=== PATIENT | female | born 1995 ===

== ENCOUNTER 2016-12-04 08:10 | Inpatient (IN) | payer MEDICAID, OTHER ==
[2016-12-04 08:21] VITALS: BMI 27.8
[2016-12-04] MEDS ORDERED: Sodium Chloride 0.9% 1,000 ML IV STA (08:38)
[2016-12-04] MEDS ORDERED: Iohexol 240 (50 ml) ONE (08:44)
--- NOTE | 2016-12-04 09:01 | ED PDOC ---
Arrival/HPI - General Chief Complaint: Abdominal Pain Time Seen by Provider: 12/04/16 08:20 Historian: Patient - History of Present Illness Narrative History of Present Illness (Text): 12/04/16 08:40 A 21 year old female, whose past medical history includes diabetes, s/p cholcystectomy, presents to the ed for abdominal pain, which began 3 days ago. The patient reports her abdominal pain has associated nausea and multiple episodes of vomiting with no blood. The patient states she had a fever of 101.0 last night and took Motrin, she also notes that she hasn't been taking her insulin, due to her decreased appetite. The patient denies any chest pain, shortness of breath, cough, back pain, headaches, dysuria, hematuria, vaginal bleeding, vaginal discharge, or any other complaints at this time. The patient admits to being treated at [facility] 2 days ago and was given antibiotics for UTI. Time/Duration: < week (x 3 days ) Symptom Onset: Gradual Symptom Course: Unchanged Activities at Onset: Light Context: Home Past Medical History - Provider Review Nursing Documentation Reviewed: Yes - Infectious Disease Hx of Infectious Diseases: None - Tetanus Immunization Tetanus Immunization: Unknown - Cardiac Hx Atrial Fibrillation: No Hx Cardiac Arrhythmia: No Hx Congestive Heart Failure: No - Pulmonary Hx Respiratory Disorders: Yes Hx Asthma: Yes - Neurological Hx Neurological Disorder: No - HEENT Hx HEENT Disorder: No - Renal Hx Renal Disorder: Yes (''KIDNEY INFECTION'') - Endocrine/Metabolic Hx Endocrine Disorders: Yes Hx Diabetes Mellitus Type 1: Yes - Hematological/Oncological Hx Blood Disorders: No - Integumentary Hx Dermatological Disorder: No - Musculoskeletal/Rheumatological Hx Musculoskeletal Disorders: No Hx Falls: No - Gastrointestinal Hx Gastrointestinal Disorders: Yes Hx Nausea: Yes Hx Vomiting: Yes - Genitourinary/Gynecological Hx Genitourinary Disorders: Yes Hx Urinary Tract Infection: Yes - Psychiatric Hx Psychophysiologic Disorder: No Hx Substance Use: No - Past Surgical History Past Surgical History: No Previous - Surgical History Hx Cholecystectomy: Yes Other/Comment: ectopic - Anesthesia Hx Anesthesia: Yes Hx Anesthesia Reactions: No Hx Malignant Hyperthermia: No - Suicidal Assessment Feels Threatened In Home Enviroment: No Family/Social History - Physician Review Nursing Documentation Reviewed: Yes Family/Social History: No Known Family HX Smoking Status: Never Smoked Hx Alcohol Use: Yes Frequency of alcohol use: Socially Hx Substance Use: No Hx Substance Use Treatment: No Allergies/Home Meds Allergies/Adverse Reactions: Allergies shellfish derived Allergy (Verified 12/04/16 15:27) SWELLING Home Medications: Home Meds Medication Instructions Recorded Confirmed No Known Home Med 12/04/16 12/04/16 Review of Systems - Physician Review All systems were reviewed & negative as marked: Yes - Review of Systems Constitutional: Fevers (101.0 x last night ) Respiratory: absent: SOB Cardiovascular: absent: Chest Pain Gastrointestinal: Abdominal Pain, Nausea, Vomiting, Appetite Changes (decreased) Genitourinary Female: absent: Dysuria, Hematuria, Vaginal Bleeding, Vaginal Discharge Musculoskeletal: absent: Back Pain Neurological: absent: Headache Physical Exam Vital Signs Temp Pulse Resp BP Pulse Ox 12/04/16 13:18 99.1 F 119 H 17 147/92 H 100 12/04/16 10:40 99.1 F 112 H 17 151/92 H 98 12/04/16 08:28 126 H 16 105/60 100 12/04/16 08:17 99.2 F 135 H 17 150/86 100 Temperature: Afebrile Blood Pressure: Normal Pulse: Tachycardic Respiratory Rate: Normal Appearance: Positive for: Well-Appearing, Non-Toxic, Comfortable Pain Distress: None Mental Status: Positive for: Alert and Oriented X 3 Finger Stick Blood Glucose: 316 - Systems Exam Head: Present: Atraumatic, Normocephalic Pupils: Present: PERRL Extroacular Muscles: Present: EOMI Conjunctiva: Present: Normal Mouth: Present: Moist Mucous Membranes Neck: Present: Normal Range of Motion Respiratory/Chest: Present: Clear to Auscultation, Good Air Exchange. No: Respiratory Distress, Accessory Muscle Use Cardiovascular: Present: Regular Rate and Rhythm, Normal S1, S2. No: Murmurs Abdomen: Present: Tenderness (Diffuse tenderness throughout entire abdomen), Normal Bowel Sounds. No: Distention, Peritoneal Signs Back: Present: Normal Inspection Upper Extremity: Present: Normal Inspection. No: Cyanosis, Edema Lower Extremity: Present: Normal Inspection. No: Edema Neurological: Present: GCS=15, CN II-XII Intact, Speech Normal Skin: Present: Warm, Dry, Normal Color. No: Rashes Psychiatric: Present: Alert, Oriented x 3, Normal Insight, Normal Concentration Medical Decision Making ED Course and Treatment: 12/04/16 09:00 Impression: A 21 year old female with abdominal pain. Differential Diagnosis included but are not limited to: Plan: -- Abdomen & Pelvis CT -- EKG -- Labs -- test -- Pepcid, Zofran, IV Fluids -- Urinalysis -- Reassess and disposition Prior Visits: Notes and results from previous visits were reviewed. The patient was last seen in the emergency department on 12/03/16 for abdominal pain. The patient was discharged home. Progress Notes: 12/04/16 09:12 EKG: Ordered, reviewed, and independently interpreted the EKG. Rate : 127 BPM Rhythm : Sinus rhythm Interpretation : No ST-segment elevations or depressions, no T-wave inversions, normal intervals. Comparison : No previous EKG for comparison. 12/04/16 12:[address] Beltrán and patient will be admitted. - Lab Interpretations Lab Results: 12/04/16 08:45 12/04/16 08:45 Lab Results 12/04/16 09:10: Urine Color Yellow, Urine Appearance Sl cloudy, Urine pH 7.5, Ur Specific [place] 1.020, Urine Protein 100 H, Urine Glucose (UA) 500 H, Urine Ketones 40 H, Urine Blood Large H, Urine Nitrate Negative, Urine Bilirubin Negative, Urine Urobilinogen 4.0 H, Ur Leukocyte Esterase Negative, Urine RBC 5 - 10, Urine WBC 15 - 20, Ur Epithelial Cells 6 - 8, Urine Bacteria Many, Urine HCG, Qual Negative 12/04/16 08:45: pO2 45, VBG pH 7.46 H, VBG pCO2 46.0, VBG HCO3 32.7 H, VBG Total CO2 34.1 H, VBG O2 Sat (Calc) 89.8 H, VBG Base Excess 7.7 H, VBG Potassium 3.2 L, Sodium 137.0, Chloride 96.0 L, Glucose 308 H, Lactate 1.7, FiO2 21.0, Venous Blood Potassium 3.2 L 12/04/16 08:45: Sodium 141, Chloride 94 L, Potassium 3.3 L, Carbon Dioxide 31, Anion Gap 19, BUN 9, Creatinine 0.6, Est GFR ( Amer) > 60, Est GFR (Non- Af Amer) > 60, Random Glucose 297 H, Calcium 9.2, Total Bilirubin 1.3, AST 32, ALT 41, Alkaline Phosphatase 73, Total Protein 7.9, Albumin 4.4, Globulin 3.4, Albumin/Globulin Ratio 1.3, Amylase 63, Lipase 18 L 12/04/16 08:45: WBC 24.6 H D, RBC 4.07, Hgb 13.6, Hct 36.8, MCV 90.4, MCH 33.4, MCHC 37.0, RDW 12.7, Plt Count 219, MPV 9.4, Gran % 93.0 H, Lymph % (Auto) 1.8 L , Chambers % (Auto) 5.2, Eos % (Auto) 0.0 L, Baso % (Auto) 0.0, Gran # 22.90 H, Lymph # 0.5 L, Chambers # 1.3 H, Eos # 0.0, Baso # 0.01 12/04/16 08:26: POC Glucose (mg/dL) 316 H I have reviewed the lab results: Yes - RAD Interpretation Radiology Orders: 12/04/16 08:38 ABD PELVIS PO & IV CONTRAST [CT] Stat 12/04/16 09:31 CHEST PORTABLE [RAD] Stat - Medication Orders Current Medication Orders: Acetaminophen (Tylenol 325mg Tab) 650 mg PO Q6H PRN PRN Reason: Fever >100.4 F Last Admin: 12/04/16 16:30 Dose: 650 mg Albuterol Sulfate (Albuterol 0.083% Inhal Rekha (2.5 Mg/3 Ml) Ud) 2.5 mg IH [id number] PRN PRN Reason: WHEEZING\ Docusate Sodium (Colace) 100 mg PO BID [facility] Last Admin: 12/04/16 17:15 Dose: 100 mg Famotidine (Pepcid) 40 mg PO HS MARIA A Ceftriaxone Sodium (Rocephin 1 Gram Ivpb) 1 gm in 100 mls @ 100 mls/hr IVPB DAILY MARIA A PRN Reason: Protocol Sodium Chloride (Sodium Chloride 0.9%) 1,000 mls @ 100 mls/hr IV .Q10H MARIA A Last Admin: 12/04/16 13:06 Dose: 100 mls/hr Insulin Detemir (Levemir) 12 unit SC HS MARIA A Insulin Human Regular (Humulin R Low) 3 units SC AC MARIA A PRN Reason: Protocol Last Admin: 12/04/16 17:12 Dose: 3 units Morphine Sulfate (Morphine) 2 mg IVP Q4H PRN PRN Reason: Pain, moderate (4-7) Last Admin: 12/04/16 14:02 Dose: 2 mg Ondansetron HCl (Zofran Inj) 4 mg IVP Q4H PRN PRN Reason: Nausea/Vomiting Last Admin: 12/04/16 17:12 Dose: 4 mg Discontinued Medications Famotidine (Pepcid) 20 mg IVP STAT STA Stop: 12/04/16 08:39 Last Admin: 12/04/16 09:00 Dose: 20 mg Sodium Chloride (Sodium Chloride 0.9%) 1,000 mls @ 1,000 mls/hr IV .Q1H STA Stop: 12/04/16 09:37 Last Admin: 12/04/16 09:00 Dose: 1,000 mls/hr Ceftriaxone Sodium (Rocephin 1 Gram Ivpb) 1 gm in 100 mls @ 200 mls/hr IVPB STAT STA PRN Reason: Protocol Stop: 12/04/16 12:38 Last Admin: 12/04/16 12:16 Dose: 200 mls/hr Insulin Human Regular (Humulin R Low) 0 units SC ACHS MARIA A PRN Reason: Protocol Iohexol (Omnipaque 240 (50 Ml)) Confirm Administered Dose 50 ml .ROUTE .STK-MED ONE Stop: 12/04/16 08:45 Iohexol (Omnipaque 350 100 Ml) Confirm Administered Dose 350 mg .ROUTE .STK-MED ONE Stop: 12/04/16 09:43 Ketorolac Tromethamine (Toradol) 30 mg IVP STAT STA Stop: 12/04/16 09:24 Last Admin: 12/04/16 09:52 Dose: 30 mg Morphine Sulfate (Morphine) 2 mg IVP STAT STA Stop: 12/04/16 11:24 Last Admin: 12/04/16 11:28 Dose: 2 mg Ondansetron HCl (Zofran Inj) 4 mg IVP STAT STA Stop: 12/04/16 08:39 Last Admin: 12/04/16 09:00 Dose: 4 mg Pneumococcal Polyvalent Vaccine (Pneumovax 23 Vaccine) 0.5 ml IM .ONCE ONE Stop: 12/04/16 16:56 Potassium Chloride (Potassium Chloride Oral Soln) 40 meq PO STAT STA Stop: 12/04/16 09:23 Last Admin: 12/04/16 09:52 Dose: 40 meq - Scribe Statement The provider has reviewed the documentation as recorded by the Renita Mendes Provider Scribe Attestation: All medical record entries made by the Scribe were at my direction and personally dictated by me. I have reviewed the chart and agree that the record accurately reflects my personal performance of the history, physical exam, medical decision making, and the department course for this patient. I have also personally directed, reviewed, and agree with the discharge instructions and disposition. Disposition/Present on Arrival - Present on Arrival Any Indicators Present on Arrival: No History of DVT/PE: No History of Uncontrolled Diabetes: No Urinary Catheter: No History of Decub. Ulcer: No History Surgical Site Infection Following: None - Disposition Have Diagnosis and Disposition been Completed?: Yes Diagnosis: Pyelonephritis Disposition: HOSPITALIZED Disposition Time: 12:00 Condition: STABLE
[2016-12-04 09:06] LABS: BASO # 0.01 K/mm3 (0.0-2.0); GRAN # 22.9 (1.4-6.5); HEMATOCRIT 36.8 % (36.0-48.0); LYMPH # 0.5 (1.2-3.4); LYMPH % 1.8 % (22.0-35.0); MEAN CELL VOLUME 90.4 fl (80.0-105.0); MEAN CORPUSCULAR HEMOGLOBIN 33.4 pg (25.0-35.0); MEAN PLATELET VOLUME 9.4 fl (7.0-11.0); MONO # 1.3 (0.1-0.6); MONO % 5.2 % (1.0-6.0); RED CELL DISTRIBUTION WIDTH 12.7 % (11.5-14.5); WHITE BLOOD COUNT 24.6 10^3/ul (4.5-11.0)
[2016-12-04 09:07] LABS: VENOUS BLOOD GAS BASE EXCESS 7.7 mmol/L (0.0-2.0); VENOUS BLOOD PH 7.46 (7.32-7.43)
[2016-12-04 09:15] LABS: ALB/GLOB RATIO 1.3 (1.1-1.8); ALKALINE PHOSPHATASE 73 U/L (38-126); ALT/SGPT 41 U/L (7-56); AMYLASE 63 U/L (35-125); AST/SGOT 32 U/L (14-36); BILIRUBIN,TOTAL 1.3 mg/dL (0.2-1.3); BLOOD UREA NITROGEN 9 mg/dL (7-21); CALCIUM 9.2 mg/dL (8.4-10.5); CARBON DIOXIDE 31 mmol/L (21-33); CHLORIDE 94 mmol/L (98-107); GFR AFRICAN-AMERICAN > 60; GLUCOSE,RANDOM 297 mg/dL (70-110); LIPASE 18 U/L (23-300); POTASSIUM 3.3 mmol/L (3.6-5.0); SODIUM 141 mmol/L (132-148); TOTAL PROTEIN 7.9 g/dL (5.8-8.3)
[2016-12-04 09:22] LABS: PH,URINE 7.5 (4.7-8.0); URINE BILIRUBIN NEGATIVE (NEGATIVE); URINE BLOOD LARGE (NEGATIVE); URINE GLUCOSE (UA) 500 mg/dL (NEGATIVE); URINE KETONE 40 mg/dL (NEGATIVE); URINE LEUKOCYTE ESTERASE NEGATIVE Leu/uL (NEGATIVE); URINE PROTEIN 100 mg/dL (<30 mg/dL)
[2016-12-04] MEDS ORDERED: Potassium Chloride 40 mEq/30 ml LIQ UD PO STA (09:22)
[2016-12-04 09:31] LABS: URINE APPEARANCE SL CLOUDY (CLEAR); URINE COLOR YELLOW (YELLOW)
[2016-12-04 09:35] LABS: URINE WBC 15 - 20 /hpf (0-6)
[2016-12-04 09:36] LABS: URINE BACTERIA MANY (NEG)
[2016-12-04] MEDS ORDERED: Iohexol 350 MG/100 ML VIAL ONE (09:42)
--- NOTE | 2016-12-04 10:19 | RAD ---
HISTORY: r/o infiltrate COMPARISON: No prior. FINDINGS: LUNGS: No active pulmonary disease. PLEURA: No significant pleural effusion identified, no pneumothorax apparent. CARDIOVASCULAR: Normal. OSSEOUS STRUCTURES: No significant abnormalities. VISUALIZED UPPER ABDOMEN: Normal. OTHER FINDINGS: None. IMPRESSION: No active disease.
[2016-12-04] MEDS ORDERED: Morphine 2 mg/ml ISec IVP STA (11:23)
--- NOTE | 2016-12-04 11:36 | CT ---
PROCEDURE: CT Abdomen and Pelvis with contrast HISTORY: diffuse lower abdominal pain - greatest in lower COMPARISON: None. TECHNIQUE: Contrast dose: 100 cc of Omni 350 Radiation dose: Total exam DLP = 1061 mGy-cm. This CT exam was performed using one or more of the following dose reduction techniques: Automated exposure control, adjustment of the mA and/or kV according to patient size, and/or use of iterative reconstruction technique. FINDINGS: LOWER THORAX: Unremarkable. LIVER: Unremarkable. No gross lesion or ductal dilatation. GALLBLADDER AND BILE DUCTS: Unremarkable. PANCREAS: Unremarkable. No gross lesion or ductal dilatation. SPLEEN: Unremarkable. ADRENALS: Unremarkable. No mass. KIDNEYS AND URETERS: Poorly defined areas of hypodensity are seen in the left kidney in the upper and lower pole. These do not have the appearance of a discrete mass or cyst and are suspicious for areas of pyelonephritis with parenchymal edema and non enhancement. There is minimal perinephric stranding adjacent to the lower pole. VASCULATURE: Unremarkable. No aortic aneurysm. BOWEL: Unremarkable. No obstruction. No gross mural thickening. APPENDIX: Normal appendix. PERITONEUM: Unremarkable. No free fluid. No free air. LYMPH NODES: Unremarkable. No enlarged lymph nodes. BLADDER: The bladder is decompressed and difficult to evaluate. There may be some mural thickening REPRODUCTIVE: There are 2 separate ovarian cysts on the right side measuring 2.8 and 3.2 cm in diameter. There is no fluid in the cul-de-sac to suggest cyst rupture. BONES: No acute fracture. OTHER FINDINGS: None. IMPRESSION: Poorly defined areas of hypodensity in the left kidney suspicious for pyelonephritis. Clinical correlation is suggested
[2016-12-04] MEDS ORDERED: cefTRIAXone 1 gm 1 GM/100 ML BAG IVPB STA (12:09)
[2016-12-04] MEDS: Sodium Chloride 0.9% 1,000 ML IV SCH (13:06)
--- NOTE | 2016-12-04 13:16 | CP.PCM.HP ---
<ErnestopedroStanley - Last Filed: 12/04/16 15:28> History of Present Illness - History of Present Illness History of Present Illness: This patient is a 21 year old female w/ a PMHx of Asthma, Diabetes Type 1, and ectopic who presented to the ED with complaints of Abdominal Pain, fever, and vomiting x 8 days. Patient originally went to [facility] 2 days ago for similar symptoms. She was diagnosed with UTI and sent home with Naproxen and antibiotics (Cipro). Patient's symptoms worsened over the next two days post being d/c'd from [facility]. She returned to work and stated she "passed out" at work. Patient did not lose conscious nor did she fall on the floor. She was caught by another employee. ROS: (+) Vomitting, dysuria, decreased urinary frequency, CVA tenderness, chills, sweating, constipation (chronic) (-) Chest Pain, Palpitations. 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 Denies tobacco or illicit drug use. Just recently began drinking socially. Hospitalizations: As per HPI Family Hx: Type I diabetes (Mother and Father), Autism (All siblings), ADHD ( All siblings), Breast Cancer (Mother-Living), Epilepsy (Sister) Medications: As per MAR Present on Admission - Present on Admission Any Indicators Present on Admission: No Review of Systems - Review of Systems Review of Systems: As per HPI Past Patient History - Infectious Disease Hx of Infectious Diseases: None - Tetanus Immunizations Tetanus Immunization: Unknown - Past Medical History & Family History Past Medical History?: Yes - Past Social History Smoking Status: Never Smoked - CARDIAC Hx Atrial Fibrillation: No Hx Cardia Arrhythmia: No Hx Congestive Heart Failure: No - PULMONARY Hx Respiratory Disorders: Yes Hx Asthma: Yes - NEUROLOGICAL Hx Neurological Disorder: No - HEENT Hx HEENT Problems: No - RENAL Hx Chronic Kidney Disease: Yes (''KIDNEY INFECTION'') - ENDOCRINE/METABOLIC Hx Endocrine Disorders: Yes Hx Diabetes Mellitus Type 1: Yes - HEMATOLOGICAL/ONCOLOGICAL Hx Blood Disorders: No - INTEGUMENTARY Hx Dermatological Problems: No - MUSCULOSKELETAL/RHEUMATOLOGICAL Hx Musculoskeletal Disorders: No Hx Falls: No - GASTROINTESTINAL Hx Gastrointestinal Disorders: Yes Hx Nausea: Yes Hx Vomiting: Yes - GENITOURINARY/GYNECOLOGICAL Hx Genitourinary Disorders: Yes Hx Urinary Tract Infection: Yes - PSYCHIATRIC Hx Psychophysiologic Disorder: No Hx Substance Use: No - SURGICAL HISTORY Hx Cholecystectomy: Yes Other/Comment: ectopic - ANESTHESIA Hx Anesthesia: Yes Hx Anesthesia Reactions: No Hx Malignant Hyperthermia: No Meds Home Medications: Home Medication List Medication Instructions Recorded Confirmed Type Ciprofloxacin HCl [Cipro] 500 mg PO BID #20 tablet 12/06/16 Rx Ondansetron HCl [Zofran] 4 mg PO Q8 #6 tablet 12/06/16 Rx RX: Insulin Detemir [Levemir] 12 unit SC HS #30 unit 12/06/16 Rx RX: Insulin Human Regular-LOW 3 units SC AC #90 ml 12/06/16 Rx [HumuLIN R LOW] oxyCODONE/Acetaminophen [Percocet 1 ea PO Q6 #10 tab 12/06/16 Rx 5/325 mg Tab] Allergies/Adverse Reactions: Allergies Allergy/AdvReac Type Severity Reaction Status Date / Time shellfish derived Allergy SWELLING Verified 12/04/16 15:27 Physical Exam - Constitutional Appears: Non-toxic, No Acute Distress - Head Exam Head Exam: ATRAUMATIC, NORMOCEPHALIC - Eye Exam Eye Exam: EOMI, Normal appearance, PERRL. absent: Scleral icterus - ENT Exam ENT Exam: Mucous Membranes Moist - Respiratory Exam Respiratory Exam: Clear to Auscultation Bilateral, NORMAL BREATHING PATTERN. absent: Rales, Rhonchi, Wheezes, Respiratory Distress, Stridor - Cardiovascular Exam Cardiovascular Exam: Tachycardia, REGULAR RHYTHM, +S1, +S2. absent: JVD, +S4 - GI/Abdominal Exam GI & Abdominal Exam: Normal Bowel Sounds, Soft, Tenderness - Extremities Exam Extremities exam: Negative for: pedal edema - Back Exam Back exam: CVA tenderness (L), CVA tenderness (R) Additional comments: CVA tenderness Right > Left. - Neurological Exam Neurological exam: Alert, Oriented x3 - Psychiatric Exam Psychiatric exam: Normal Affect, Normal Mood - Skin Skin Exam: Normal Color, Warm Additional comments: sweating. Results - Vital Signs Recent Vital Signs: Last Vital Signs Temp 99.1 F 12/04/16 10:40 Pulse 112 H 12/04/16 10:40 Resp 17 12/04/16 10:40 BP 151/92 H 12/04/16 10:40 Pulse Ox 98 12/04/16 10:40 - Labs Result Diagrams: 12/04/16 08:45 12/04/16 08:45 Assessment & Plan - Assessment and Plan (Free Text) Assessment: 21 year old female who presented with Abdominal pain, fever, and vomitting. Admitted for evolution and treatment of pyelonephritis. Plan: 1.Pyelonephritis -NS 100 mls/hr -Rocephin 1 -Toradol 30 for pain control -Zofran for Nausea -Colace prophylactically for opioid induced constipation 2.Diabetes (Type 1) -Insulin Detemir 12 units before bed -Insulin Human Regular 3 units before each meal. 3. Asthma -Ventolin 2 puffs QID PRN GI proph Pepcid Patient seen and examined with Attending Stanley Tyler PGY-1 - Date & Time Date: 12/04/16 Time: 12:00 <Faustina Cordoba - Last Filed: 12/06/16 14:27> Results - Vital Signs Recent Vital Signs: Last Vital Signs Temp 98.6 F 12/06/16 06:00 Pulse 91 H 12/06/16 06:00 Resp 20 12/06/16 06:00 BP 138/94 H 12/06/16 06:00 Pulse Ox 99 12/06/16 06:00 - Labs Result Diagrams: 12/06/16 09:15 12/06/16 09:15 Labs: Laboratory Results - last 24 hr 12/05/16 12/05/16 12/05/16 12:03 16:23 21:13 WBC RBC Hgb Hct MCV MCH MCHC RDW Plt Count MPV Sodium Potassium Chloride Carbon Dioxide Anion Gap BUN Creatinine Est GFR ( Amer) Est GFR (Non-Af Amer) POC Glucose (mg/dL) 156 H 220 H 172 H Random Glucose Calcium 12/06/16 12/06/16 12/06/16 03:29 07:36 09:15 WBC 8.0 D RBC 3.72 Hgb 12.1 Hct 34.1 L MCV 91.7 MCH 32.5 MCHC 35.5 RDW 12.7 Plt Count 231 MPV 9.3 Sodium Potassium Chloride Carbon Dioxide Anion Gap BUN Creatinine Est GFR ( Amer) Est GFR (Non-Af Amer) POC Glucose (mg/dL) 113 H 178 H Random Glucose Calcium 12/06/16 12/06/16 09:15 11:52 WBC RBC Hgb Hct MCV MCH MCHC RDW Plt Count MPV Sodium 138 Potassium 3.8 Chloride 101 Carbon Dioxide 27 Anion Gap 14 BUN 8 Creatinine 0.6 Est GFR ( Amer) > 60 Est GFR (Non-Af Amer) > 60 POC Glucose (mg/dL) 157 H Random Glucose 144 H Calcium 8.9 Attending/Attestation - Attestation I have personally seen and examined this patient.: Yes I have fully participated in the care of the patient.: Yes I have reviewed all pertinent clinical information: Yes Notes (Text): 12/06/16 14:25 attending note; Patient seen and examined with resident in ER. Patient is a 21-year-old female With a past medical history of diabetes, asthma is admitted with fevers, chills and flank pain. CT abdomen is consistent with acute pyelonephritis. started on IV Rocephin. Patient had recent urine culture showed Escherichia coli. ID evaluation requested. Monitor closely. Diabetes; continue Levemir and insulin sliding scale. upon discharge the patient will follow-up with PMD Dr. Pierce. 12/06/16 14:27
[2016-12-04] MEDS: Morphine 2 mg/ml ISec IVP PRN ×3 (14:02→22:33)
[2016-12-04] MEDS ORDERED: Albuterol HFA 90 mcg/actuation (8 g) IH PRN (15:27)
[2016-12-04] MEDS ORDERED: Albuterol 0.083% Inhal Sol (2.5 mg/3 mL) UD IH PRN (15:30)
--- NOTE | 2016-12-04 15:41 | CARD ---
APPROVED REPORT EKG Measurement Heart [id number] <Conclusion> Sinus tachycardia Possible Left atrial enlargement Borderline ECG
[2016-12-04] MEDS ORDERED: Insulin Reg-LOW-Coverage SC SCH (16:30)
[2016-12-04] MEDS ORDERED: Pneumococcal 23-Valent Vaccine IM ONE (16:55)
[2016-12-04] MEDS: Insulin Reg-LOW-Coverage SC SCH (17:12)
[2016-12-04] MEDS: Insulin Detemir 100 units/ml Vial (Levemir) SC SCH (21:23)
[2016-12-05] MEDS: Morphine 2 mg/ml ISec IVP PRN ×5 (02:41→21:01)
[2016-12-05] MEDS: Insulin Reg-LOW-Coverage SC SCH ×3 (09:12→16:35)
[2016-12-05] MEDS: Sodium Chloride 0.9% 1,000 ML IV SCH ×2 (09:13→23:02)
[2016-12-05] MEDS: cefTRIAXone 1 gm 1 GM/100 ML BAG IVPB SCH (09:14)
[2016-12-05 10:39] LABS: BASO # 0.01 K/mm3 (0.0-2.0); BASO % 0.1 % (0.0-3.0); EOS % 0.1 % (1.5-5.0); GRAN # 12.86 (1.4-6.5); GRAN % 86.2 % (50.0-68.0); LYMPH % 6.8 % (22.0-35.0); MEAN CELL VOLUME 91.7 fl (80.0-105.0); MEAN CORPUSCULAR HEMOGLOBIN 32.8 pg (25.0-35.0); MEAN CORPUSCULAR HGB CONC 35.8 g/dl (31.0-37.0); MEAN PLATELET VOLUME 9.4 fl (7.0-11.0); MONO % 6.8 % (1.0-6.0); RED CELL DISTRIBUTION WIDTH 12.6 % (11.5-14.5); WHITE BLOOD COUNT 14.9 10^3/ul (4.5-11.0)
[2016-12-05 10:44] LABS: BLOOD UREA NITROGEN 8 mg/dL (7-21); CALCIUM 8.6 mg/dL (8.4-10.5); CARBON DIOXIDE 25 mmol/L (21-33); CHLORIDE 100 mmol/L (98-107); GFR AFRICAN-AMERICAN > 60; GLUCOSE,RANDOM 185 mg/dL (70-110); POTASSIUM 3.5 mmol/L (3.6-5.0); SODIUM 136 mmol/L (132-148)
[2016-12-05] MEDS ORDERED: Lidocaine 2% Viscous 100 ml PO PRN (10:49)
[2016-12-05] MEDS ORDERED: Potassium Chloride 20 mEq ER Tab PO ONE (10:54)
--- NOTE | 2016-12-05 11:20 | CP.PCM.PN ---
<Stanley Tyler - Last Filed: 12/05/16 11:34> Subjective - Date & Time of Evaluation Date of Evaluation: 12/05/16 Time of Evaluation: 11:17 - Subjective Subjective: Patient has been seen and examined. Patient complains of subjective fever, chills, sore throat and diffuse abdominal pain. Denies SOB, Chest pain, Vomiting, Diarrhea, or constipation. Objective - Vital Signs/Intake and Output Vital Signs (last 24 hours): Temp Pulse Resp BP Pulse Ox 100.0 F H 124 H 21 156/99 H 98 12/05/16 06:00 12/05/16 06:00 12/05/16 06:00 12/05/16 06:00 12/05/16 06:00 Intake and Output: 12/05/16 12/05/16 06:59 18:59 Intake Total 540 480 Balance 540 480 - Medications Medications: Current Medications Acetaminophen (Tylenol 325mg Tab) 650 mg PO Q6H PRN PRN Reason: Fever >100.4 F Last Admin: 12/04/16 16:30 Dose: 650 mg Albuterol Sulfate (Albuterol 0.083% Inhal Rekha (2.5 Mg/3 Ml) Ud) 2.5 mg IH [id number] PRN PRN Reason: WHEEZING\ Docusate Sodium (Colace) 100 mg PO BID [facility] Last Admin: 12/05/16 09:12 Dose: 100 mg Famotidine (Pepcid) 40 mg PO HS [facility] Last Admin: 12/04/16 21:24 Dose: 40 mg Ceftriaxone Sodium (Rocephin 1 Gram Ivpb) 1 gm in 100 mls @ 100 mls/hr IVPB DAILY [facility] PRN Reason: Protocol Last Admin: 12/05/16 09:14 Dose: 100 mls/hr Sodium Chloride (Sodium Chloride 0.9%) 1,000 mls @ 100 mls/hr IV .Q10H [facility] Last Admin: 12/05/16 09:13 Dose: 100 mls/hr Ibuprofen (Motrin Tab) 400 mg PO Q6H PRN PRN Reason: Fever >100.4 F Insulin Detemir (Levemir) 12 unit SC [facility] Last Admin: 12/04/16 21:23 Dose: 12 unit Insulin Human Regular (Humulin R Low) 3 units SC [facility] PRN Reason: Protocol Last Admin: 12/05/16 09:12 Dose: 3 units Lidocaine HCl (Lidocaine 2% Viscous) 15 ml PO Q3H PRN PRN Reason: Sore Throat Morphine Sulfate (Morphine) 2 mg IVP Q4H PRN PRN Reason: Pain, moderate (4-7) Last Admin: 12/05/16 08:04 Dose: 2 mg Ondansetron HCl (Zofran Inj) 4 mg IVP Q4H PRN PRN Reason: Nausea/Vomiting Last Admin: 12/05/16 09:56 Dose: 4 mg - Labs Labs: 12/05/16 10:30 12/05/16 10:30 - Constitutional Appears: No Acute Distress - Head Exam Head Exam: ATRAUMATIC, NORMOCEPHALIC - Eye Exam Eye Exam: Normal appearance - ENT Exam ENT Exam: Mucous Membranes Moist, Normal Oropharynx - Respiratory Exam Respiratory Exam: Clear to Ausculation Bilateral. absent: Rales, Rhonchi, Wheezes - Cardiovascular Exam Cardiovascular Exam: RRR, +S1, +S2 - GI/Abdominal Exam GI & Abdominal Exam: Soft, Tenderness, Normal Bowel Sounds - Back Exam Back Exam: CVA tenderness (L), CVA tenderness (R) - Neurological Exam Neurological Exam: Alert, Awake, Oriented x3 - Psychiatric Exam Psychiatric exam: Depressed - Skin Skin Exam: Intact, Normal Color, Warm. absent: Dry Assessment and Plan - Assessment and Plan (Free Text) Assessment: Assessment: 21 year old female who presented with abdominal pain, fever, and vomiting. Admitted for evaluation and treatment of pyelonephritis. Plan: 1.Pyelonephritis -NS 100 mls/hr -Rocephin 1 -Toradol 30 for pain control -Zofran for Nausea -Colace prophylactically for opioid induced constipation - Urine cultures from [facility] [place] showed E.coli 2.Diabetes (Type 1) -Insulin Detemir 12 units before bed -Insulin Human Regular 3 units before each meal. 3. Asthma -Ventolin 2 puffs QID PRN GI proph Pepcid Dispo: Patient Hypertensive and tachycardic this morning. Likely due to pain. We will monitor BP. Per ID, we will discharge if patient is afebrile > 24 hours. Patient seen and examined with Attending Stanley Tyler PGY-1 <Jailene ANSARI,Domenico - Last Filed: 12/05/16 15:53> Objective - Vital Signs/Intake and Output Vital Signs (last 24 hours): Temp Pulse Resp BP Pulse Ox 100.0 F H 124 H 21 156/99 H 98 12/05/16 06:00 12/05/16 06:00 12/05/16 06:00 12/05/16 06:00 12/05/16 06:00 Intake and Output: 12/05/16 12/05/16 06:59 18:59 Intake Total 540 480 Balance 540 480 - Medications Medications: Current Medications Acetaminophen (Tylenol 325mg Tab) 650 mg PO Q6H PRN PRN Reason: Fever >100.4 F Last Admin: 12/04/16 16:30 Dose: 650 mg Albuterol Sulfate (Albuterol 0.083% Inhal Rekha (2.5 Mg/3 Ml) Ud) 2.5 mg IH [id number] PRN PRN Reason: WHEEZING\ Docusate Sodium (Colace) 100 mg PO BID [facility] Last Admin: 12/05/16 09:12 Dose: 100 mg Famotidine (Pepcid) 40 mg PO HS [facility] Last Admin: 12/04/16 21:24 Dose: 40 mg Ceftriaxone Sodium (Rocephin 1 Gram Ivpb) 1 gm in 100 mls @ 100 mls/hr IVPB DAILY [facility] PRN Reason: Protocol Last Admin: 12/05/16 09:14 Dose: 100 mls/hr Sodium Chloride (Sodium Chloride 0.9%) 1,000 mls @ 100 mls/hr IV .Q10H [facility] Last Admin: 12/05/16 09:13 Dose: 100 mls/hr Ibuprofen (Motrin Tab) 400 mg PO Q6H PRN PRN Reason: Fever >100.4 F Last Admin: 12/05/16 14:22 Dose: 400 mg Insulin Detemir (Levemir) 12 unit SC HS [facility] Last Admin: 12/04/16 21:23 Dose: 12 unit Insulin Human Regular (Humulin R Low) 3 units SC AC [facility] PRN Reason: Protocol Last Admin: 12/05/16 12:27 Dose: 3 units Lidocaine HCl (Lidocaine 2% Viscous) 15 ml PO Q3H PRN PRN Reason: Sore Throat Morphine Sulfate (Morphine) 2 mg IVP Q4H PRN PRN Reason: Pain, moderate (4-7) Last Admin: 12/05/16 12:30 Dose: 2 mg Ondansetron HCl (Zofran Inj) 4 mg IVP Q4H PRN PRN Reason: Nausea/Vomiting Last Admin: 12/05/16 14:22 Dose: 4 mg - Labs Labs: 12/05/16 10:30 12/05/16 10:30 Attending/Attestation - Attestation I have personally seen and examined this patient.: Yes I have fully participated in the care of the patient.: Yes I have reviewed all pertinent clinical information, including history, physical exam and plan: Yes Notes (Text): 12/05/16 15:49 Patient was seen and examined with medical records custodian. Agreed with resident assessment and plan. 25 Yrs old female with Sepsis due to left side Pylonephritis.Urine cultures are growing E coli.Patient fever is improving.WBC count is coming down. Pain is better.Blood cultures are negative for any growth. If cultures remain negative and she keeps improving, can be discharged in 24 hour. Management plan was discussed in detail with patient Education was provided.
[2016-12-05] MEDS: Insulin Detemir 100 units/ml Vial (Levemir) SC SCH (22:51)
--- NOTE | 2016-12-06 00:34 | CON ---
DATE: 12/05/2016 SUBJECTIVE: The patient is in bed, was seen earlier in room 369 bed 1. CHIEF COMPLAINT: Abdominal pain times several days. HISTORY OF PRESENT ILLNESS: This is a 21-year-old female with history of asthma, diabetes, and pyelonephritis, history of ectopic in September, and history of cholecystectomy in the past who is ALLERGIC TO SHELLFISH, who is admitted with diagnosis of pyelonephritis. Infectious disease consult on patient requested. The patient states that she has had fevers and bilateral flank pains and she had chills. No nausea or vomiting at this point. She did have nausea earlier. No dysuria or frequency now. She has no chest pain, shortness of breath, or cough. PAST MEDICAL HISTORY: Significant for diabetes mellitus, asthma, pyelonephritis, and ectopic in September. PAST SURGICAL HISTORY: Cholecystectomy and surgery for the ectopic in September. ALLERGIES: PATIENT IS ALLERGIC TO SHELLFISH. HOME MEDICATIONS: No medications at home. SOCIAL HISTORY: The patient is sexually active, same one partner. She states they always use condom. She has never had any sexually transmitted diseases in the past. PHYSICAL EXAMINATION VITAL SIGNS: Temperature is 99, T-max is 101, blood pressure is 150/90, respiratory rate of 21, and heart rate of 121. HEENT: Unremarkable. NECK: Supple. LUNGS: Decreased breath sounds. HEART: Normal S1 and S2. ABDOMEN: Soft and nontender. No rebound, no guarding, no masses. There is mild CVA tenderness. LABORATORY DATA: Reveals a white count of 24,000, hemoglobin of 13, and platelets 219,000. Chemistry reveals a BUN of 8, creatinine of 0.6, and the patient's beta hCG is less than 2.39, which is consistent with non- females. Urinalysis is noted, 15 WBCs and many bacteria. Microbiology reveals a gram negative amrita in the urine and the patient had a gram negative amrita, which was E. coli on , is pansensitive. ASSESSMENT AND PLAN: A 21-year-old female with diabetes and asthma, pyelonephritis, history of ectopic presenting with leukocytosis, fever, vomiting and sepsis with left pyelonephritis, although bilateral with E. coli this is pansensitive. Current recommendations, continue intravenous antibiotics until the patient is afebrile for 24 hours, then may switch to p.o. Cipro to complete therapy. Currently, we will treat the patient with ceftriaxone. We will order an HIV test, GC and chlamydia workup and check on the blood cultures and identification and sensitivity of the gram negative amrita. Case was discussed with PMD. We will follow with you. Luis Zhu MD
[2016-12-06] MEDS: Morphine 2 mg/ml ISec IVP PRN ×5 (01:00→19:08)
[2016-12-06] MEDS: Insulin Reg-LOW-Coverage SC SCH ×3 (07:32→16:35)
[2016-12-06 09:03] VITALS: O2SAT 99
[2016-12-06 09:36] LABS: HEMATOCRIT 34.1 % (36.0-48.0); MEAN CELL VOLUME 91.7 fl (80.0-105.0); MEAN CORPUSCULAR HEMOGLOBIN 32.5 pg (25.0-35.0); MEAN CORPUSCULAR HGB CONC 35.5 g/dl (31.0-37.0); MEAN PLATELET VOLUME 9.3 fl (7.0-11.0); RED CELL DISTRIBUTION WIDTH 12.7 % (11.5-14.5)
[2016-12-06 09:45] LABS: BLOOD UREA NITROGEN 8 mg/dL (7-21); CALCIUM 8.9 mg/dL (8.4-10.5); CARBON DIOXIDE 27 mmol/L (21-33); CHLORIDE 101 mmol/L (95-110); GFR AFRICAN-AMERICAN > 60; GLUCOSE,RANDOM 144 mg/dL (70-110); POTASSIUM 3.8 mmol/L (3.6-5.0); SODIUM 138 mmol/L (132-148)
[2016-12-06] MEDS: cefTRIAXone 1 gm 1 GM/100 ML BAG IVPB SCH (10:17)
--- NOTE | 2016-12-06 11:58 | CP.PCM.PN ---
<ErnestopedroAzkenyatta - Last Filed: 12/06/16 11:54> Subjective - Date & Time of Evaluation Date of Evaluation: 12/06/16 Time of Evaluation: 11:54 - Subjective Subjective: Patient has been seen and examined at bedside. Patient state she had a fever overnight. Currently reports no fever. Patient nausea has improved but has not subsided. Reports improvement of abdominal pain and CVA tenderness. Denies any CP, SOB, vomiting, dysuria or hematuria. Objective - Vital Signs/Intake and Output Vital Signs (last 24 hours): Temp Pulse Resp BP Pulse Ox 98.6 F 91 H 20 138/94 H 99 12/06/16 06:00 12/06/16 06:00 12/06/16 06:00 12/06/16 06:00 12/06/16 06:00 Intake and Output: 12/06/16 12/06/16 06:59 18:59 Intake Total 600 Output Total 0 Balance 600 - Medications Medications: Current Medications Acetaminophen (Tylenol 325mg Tab) 650 mg PO Q6H PRN PRN Reason: Fever >100.4 F Last Admin: 12/04/16 16:30 Dose: 650 mg Albuterol Sulfate (Albuterol 0.083% Inhal Rekha (2.5 Mg/3 Ml) Ud) 2.5 mg IH [id number] PRN PRN Reason: WHEEZING\ Docusate Sodium (Colace) 100 mg PO BID [facility] Last Admin: 12/06/16 10:18 Dose: 100 mg Famotidine (Pepcid) 40 mg PO [facility] Last Admin: 12/05/16 21:00 Dose: 40 mg Ceftriaxone Sodium (Rocephin 1 Gram Ivpb) 1 gm in 100 mls @ 100 mls/hr IVPB DAILY [facility] PRN Reason: Protocol Last Admin: 12/06/16 10:17 Dose: 100 mls/hr Sodium Chloride (Sodium Chloride 0.9%) 1,000 mls @ 100 mls/hr IV .Q10H [facility] Last Admin: 12/05/16 23:02 Dose: 100 mls/hr Ibuprofen (Motrin Tab) 400 mg PO Q6H PRN PRN Reason: Fever >100.4 F Last Admin: 12/05/16 14:22 Dose: 400 mg Insulin Detemir (Levemir) 12 unit SC [facility] Last Admin: 12/05/16 22:51 Dose: 12 unit Insulin Human Regular (Humulin R Low) 3 units SC [facility] PRN Reason: Protocol Last Admin: 12/05/16 16:35 Dose: 3 units Lidocaine HCl (Lidocaine 2% Viscous) 15 ml PO Q3H PRN PRN Reason: Sore Throat Morphine Sulfate (Morphine) 2 mg IVP Q4H PRN PRN Reason: Pain, moderate (4-7) Last Admin: 12/06/16 10:17 Dose: 2 mg Ondansetron HCl (Zofran Inj) 4 mg IVP Q4H PRN PRN Reason: Nausea/Vomiting Last Admin: 12/06/16 10:17 Dose: 4 mg - Labs Labs: 12/06/16 09:15 12/06/16 09:15 - Constitutional Appears: No Acute Distress - Head Exam Head Exam: ATRAUMATIC, NORMAL INSPECTION, NORMOCEPHALIC - Eye Exam Eye Exam: EOMI, Normal appearance - ENT Exam ENT Exam: Mucous Membranes Moist - Respiratory Exam Respiratory Exam: Clear to Ausculation Bilateral. absent: Rales, Rhonchi, Wheezes, Respiratory Distress, Stridor - Cardiovascular Exam Cardiovascular Exam: RRR, +S1, +S2 - GI/Abdominal Exam GI & Abdominal Exam: Soft, Normal Bowel Sounds. absent: Tenderness, Organomegaly - Back Exam Back Exam: CVA tenderness (L), CVA tenderness (R) Additional comments: CVA tenderness improved - Neurological Exam Neurological Exam: Alert, Awake, Oriented x3 - Psychiatric Exam Psychiatric exam: Normal Affect, Normal Mood - Skin Skin Exam: Dry, Intact, Normal Color, Warm Assessment and Plan - Assessment and Plan (Free Text) Assessment: 21 year old female with PMHx of Type 1 diabetes and Asthma who presented with abdominal pain, fever, and vomiting. Admitted for evaluation and treatment of pyelonephritis. Plan: 1. Pyelonephritis -NS 100 mls/hr -Rocephin 1. F/U with ID for outpatient antibiotic therapy. -Motrin 400 PO q6, and Morphine 2 IVP Q4 for pain control. -Zofran for Nausea -Colace prophylactically for opioid induced constipation - Urine cultures from [facility] showed E.coli 2. Diabetes (Type 1) -Insulin Detemir 12 units before bed -Insulin Human Regular 3 units before each meal. 3. Asthma -Ventolin 2 puffs QID PRN GI proph: Pepcid Dispo: Patient Hypertensive and tachycardia this morning. Likely due to pain. We will monitor BP. Per ID, we will discharge if patient is afebrile > 24 hours. Will likely be discharged this evening or tomorrow. STD labs (HIV, syphilis, Chlamydia, Gonorrhea) currently pending. Patient seen and examined with Attending Stanley Tyler PGY-1 <Faustina Cordoba - Last Filed: 12/07/16 12:10> Objective - Vital Signs/Intake and Output Vital Signs (last 24 hours): Temp Pulse Resp BP Pulse Ox 99.3 F 76 18 152/104 H 99 12/07/16 08:45 12/07/16 08:45 12/07/16 08:45 12/07/16 08:45 12/07/16 08:45 Intake and Output: 12/07/16 12/07/16 06:59 18:59 Intake Total 720 Output Total 1 Balance 719 - Medications Medications: Current Medications Acetaminophen (Tylenol 325mg Tab) 650 mg PO Q6H PRN PRN Reason: Fever >100.4 F Last Admin: 12/04/16 16:30 Dose: 650 mg Albuterol Sulfate (Albuterol 0.083% Inhal Rekha (2.5 Mg/3 Ml) Ud) 2.5 mg IH [id number] PRN PRN Reason: WHEEZING\ Docusate Sodium (Colace) 100 mg PO BID [facility] Last Admin: 12/07/16 10:00 Dose: Not Given Famotidine (Pepcid) 40 mg PO HS [facility] Last Admin: 12/06/16 22:02 Dose: 40 mg Ceftriaxone Sodium (Rocephin 1 Gram Ivpb) 1 gm in 100 mls @ 100 mls/hr IVPB DAILY [facility] PRN Reason: Protocol Last Admin: 12/07/16 07:30 Dose: Not Given Ibuprofen (Motrin Tab) 400 mg PO Q6H PRN PRN Reason: Fever >100.4 F Last Admin: 12/05/16 14:22 Dose: 400 mg Insulin Detemir (Levemir) 12 unit SC HS [facility] Last Admin: 12/06/16 22:00 Dose: 12 unit Insulin Human Regular (Humulin R Low) 3 units SC AC [facility] PRN Reason: Protocol Last Admin: 12/07/16 11:57 Dose: Not Given Lidocaine HCl (Lidocaine 2% Viscous) 15 ml PO Q3H PRN PRN Reason: Sore Throat Ondansetron HCl (Zofran Inj) 4 mg IVP Q4H PRN PRN Reason: Nausea/Vomiting Last Admin: 12/07/16 00:15 Dose: 4 mg Oxycodone/Acetaminophen (Percocet 5/325 Mg Tab) 1 tab PO Q6H PRN PRN Reason: Pain, moderate (4-7) Stop: 12/09/16 15:59 Attending/Attestation - Attestation I have personally seen and examined this patient.: Yes I have fully participated in the care of the patient.: Yes I have reviewed all pertinent clinical information, including history, physical exam and plan: Yes Notes (Text): 12/07/16 12:09 attending note; Patient seen and examined with resident in ER. Patient is a 21-year-old female With a past medical history of diabetes, asthma is admitted with fevers, chills and flank pain. CT abdomen is consistent with acute pyelonephritis. on IV Rocephin. Patient had recent urine culture showed Escherichia coli. leukocytosis is improving. ID evaluation appreciated. Monitor closely. Diabetes; continue Levemir and insulin sliding scale. possible discharge home tomorrow if afebrile. upon discharge the patient will follow-up with PMD Dr. Pierce.
--- NOTE | 2016-12-06 13:52 | PN ---
DATE: 12/06/2016 SUBJECTIVE: The patient is in bed, in no acute distress. PHYSICAL EXAMINATION: VITAL SIGNS: Temperature is 100, blood pressure is 130/90, respiratory rate of 21, and heart rate of 124. HEENT: Unremarkable. NECK: Supple. LUNGS: Have decreased breath sounds. HEART: Normal S1 and S2. ABDOMEN: Soft. LABORATORY DATA: Examination reveals white count is down to 8000 this morning and hemoglobin of 12 and chemistries are noted. Urinalysis is noted and microbiology reveals patient has E. coli in the urine that is pansensitive and the patient is afebrile this morning. ASSESSMENT AND PLAN: This is a 21-year-old female with history of diabetes, asthma, pyelonephritis, history of ectopic , now presenting with leukocytosis, fever, vomiting, and sepsis and left-sided pyelonephritis with pansensitive Escherichia coli. Once the patient is afebrile for 24 hours, may switch to p.o. Cipro and complete 10 days of therapy. Case discussed with Dr. Cordoba, the patient's primary doctor today. Luis Zhu MD
[2016-12-06] MEDS ORDERED: Oxycodone/Acetaminophen 5/325 mg Tab PO PRN (15:58)
[2016-12-06] MEDS: Insulin Detemir 100 units/ml Vial (Levemir) SC SCH (22:00)
[2016-12-07] MEDS: Morphine 2 mg/ml ISec IVP PRN (01:08)
[2016-12-07] MEDS: Insulin Reg-LOW-Coverage SC SCH ×2 (07:30→11:57)
[2016-12-07] MEDS: cefTRIAXone 1 gm 1 GM/100 ML BAG IVPB SCH (07:30)
[2016-12-07 08:46] VITALS: BP 152/104; PULSE 76; RESP 18; TEMP 99.3
--- NOTE | 2016-12-07 10:59 | CP.PCM.DIS ---
<OmarShanan - Last Filed: 12/07/16 15:04> Provider - Provider Date of Admission: 12/06/16 16:17 Attending physician: Faustina Cordoba MD Primary care physician: Momo Pierce MD Time Spent in preparation of Discharge (in minutes): 40 Hospital Course - Lab Results Lab Results: Most Recent Lab Values WBC 8.0 10^3/ul (4.5-11.0) D 12/06/16 09:15 RBC 3.72 10^6/uL (3.5-6.1) 12/06/16 09:15 Hgb 12.1 g/dL (12.0-16.0) 12/06/16 09:15 Hct 34.1 % (36.0-48.0) L 12/06/16 09:15 MCV 91.7 fl (80.0-105.0) 12/06/16 09:15 MCH 32.5 pg (25.0-35.0) 12/06/16 09:15 MCHC 35.5 g/dl (31.0-37.0) 12/06/16 09:15 RDW 12.7 % (11.5-14.5) 12/06/16 09:15 Plt Count 231 10^3/uL (120.0-450.0) 12/06/16 09:15 MPV 9.3 fl (7.0-11.0) 12/06/16 09:15 Gran % 86.2 % (50.0-68.0) H 12/05/16 10:30 Lymph % (Auto) 6.8 % (22.0-35.0) L 12/05/16 10:30 [place] % (Auto) 6.8 % (1.0-6.0) H 12/05/16 10:30 Eos % (Auto) 0.1 % (1.5-5.0) L 12/05/16 10:30 Baso % (Auto) 0.1 % (0.0-3.0) 12/05/16 10:30 Gran # 12.86 (1.4-6.5) H 12/05/16 10:30 Lymph # 1.0 (1.2-3.4) L 12/05/16 10:30 [place] # 1.0 (0.1-0.6) H 12/05/16 10:30 Eos # 0.0 (0.0-0.7) 12/05/16 10:30 Baso # 0.01 K/mm3 (0.0-2.0) 12/05/16 10:30 pO2 45 mm/Hg (30-55) 12/04/16 08:45 VBG pH 7.46 (7.32-7.43) H 12/04/16 08:45 VBG pCO2 46.0 (40-60) 12/04/16 08:45 VBG HCO3 32.7 mmol/l (21-28) H 12/04/16 08:45 VBG Total CO2 34.1 mmol.L (22-28) H 12/04/16 08:45 VBG O2 Sat (Calc) 89.8 % (40-65) H 12/04/16 08:45 VBG Base Excess 7.7 mmol/L (0.0-2.0) H 12/04/16 08:45 VBG Potassium 3.2 mmol/L (3.6-5.2) L 12/04/16 08:45 Sodium 137.0 mmol/L (132-148) 12/04/16 08:45 Chloride 96.0 mmol/L (98-107) L 12/04/16 08:45 Glucose 308 mg/dl (65-105) H 12/04/16 08:45 Lactate 1.7 mmol/L (0.7-2.1) 12/04/16 08:45 FiO2 21.0 % 12/04/16 08:45 Sodium 138 mmol/L (132-148) 12/06/16 09:15 Potassium 3.8 mmol/L (3.6-5.0) 12/06/16 09:15 Chloride 101 mmol/L (95-110) 12/06/16 09:15 Carbon Dioxide 27 mmol/L (21-33) 12/06/16 09:15 Anion Gap 14 (10-20) 12/06/16 09:15 BUN 8 mg/dL (7-21) 12/06/16 09:15 Creatinine 0.6 mg/dL (0.5-1.4) 12/06/16 09:15 Est GFR ( Amer) > 60 12/06/16 09:15 Est GFR (Non-Af Amer) > 60 12/06/16 09:15 POC Glucose (mg/dL) 184 mg/dL (65-110) H 12/06/16 21:39 Random Glucose 144 mg/dL (70-110) H 12/06/16 09:15 Calcium 8.9 mg/dL (8.4-10.5) 12/06/16 09:15 Total Bilirubin 1.3 mg/dL (0.2-1.3) 12/04/16 08:45 AST 32 U/L (14-36) 12/04/16 08:45 ALT 41 U/L (7-56) 12/04/16 08:45 Alkaline Phosphatase 73 U/L (38-126) 12/04/16 08:45 Total Protein 7.9 g/dL (5.8-8.3) 12/04/16 08:45 Albumin 4.4 g/dL (3.0-4.8) 12/04/16 08:45 Globulin 3.4 gm/dL 12/04/16 08:45 Albumin/Globulin Ratio 1.3 (1.1-1.8) 12/04/16 08:45 Amylase 63 U/L (35-125) 12/04/16 08:45 Lipase 18 U/L (23-300) L 12/04/16 08:45 Beta HCG, Quant < 2.39 mIU/mL (0-6.15) 12/05/16 10:30 Venous Blood Potassium 3.2 mmol/L (3.6-5.2) L 12/04/16 08:45 Urine Color Yellow (YELLOW) 12/04/16 09:10 Urine Appearance Sl cloudy (CLEAR) 12/04/16 09:10 Urine pH 7.5 (4.7-8.0) 12/04/16 09:10 Ur Specific [place] 1.020 (1.005-1.035) 12/04/16 09:10 Urine Protein 100 mg/dL (<30 mg/dL) H 12/04/16 09:10 Urine Glucose (UA) 500 mg/dL (NEGATIVE) H 12/04/16 09:10 Urine Ketones 40 mg/dL (NEGATIVE) H 12/04/16 09:10 Urine Blood Large (NEGATIVE) H 12/04/16 09:10 Urine Nitrate Negative (NEGATIVE) 12/04/16 09:10 Urine Bilirubin Negative (NEGATIVE) 12/04/16 09:10 Urine Urobilinogen 4.0 E.U./dL (<1 E.U./dL) H 12/04/16 09:10 Ur Leukocyte Esterase Negative Genny/uL (NEGATIVE) 12/04/16 09:10 Urine RBC 5 - 10 /hpf (0-2) 12/04/16 09:10 Urine WBC 15 - 20 /hpf (0-6) 12/04/16 09:10 Ur Epithelial Cells 6 - 8 /hpf (0-5) 12/04/16 09:10 Urine Bacteria Many (NEG) 12/04/16 09:10 Urine HCG, Qual Negative (NEGATIVE) 12/04/16 09:10 - Hospital Course Hospital Course: This is a 21 yr. old female with a past medical history of Type 1 Diabetes who came to [facility] complaining of abdominal pain, fever, and vomiting for eight days. She reports recently being diagnosed with a recent UTI and given Naproxen and Ciprofloxacin. Her symptoms began to worsen and she "passed out" at work. Patient denies losing consciousness and hitting her head on the floor. She reports being caught by another employee. A CT abdomen/ pelvis shoed poorly defined areas of hypodensity in the left kidney suspicious for pyelonephritis. On 12/05/16 patient reported sore throat and she denies any improvement in the pain level. She also reported subjective fevers. On 12/06 she was determined to be stable and to be sent home tonight or in the morning the next day with 10 days of Ciprofloxacin, Zofran, and Percocet. On 12/07 patient agreed to go home and was discharged. 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 Denies tobacco or illicit drug use. Fam hx: Type 1 Diabetes (Mom and Dad), Autisim and ADHD(all siblings ) Epilepsy (sister), Mom-Living (Breast Cancer) Medications: per MAR - Date & Time of H&P Date of H&P: 12/04/16 Time of H&P: 13:16 Discharge Exam - Head Exam Head Exam: ATRAUMATIC, NORMAL INSPECTION, NORMOCEPHALIC - Eye Exam Eye Exam: EOMI, Normal appearance, PERRL Pupil Exam: NORMAL ACCOMODATION, PERRL - Respiratory Exam Respiratory Exam: Clear to PA & Lateral, NORMAL BREATHING PATTERN. absent: Rhonchi, Wheezes - Cardiovascular Exam Cardiovascular Exam: REGULAR RHYTHM, RRR, +S1, +S2. absent: JVD, Rubs - GI/Abdominal Exam GI & Abdominal Exam: Normal Bowel Sounds, Soft, Unremarkable. absent: Pulsatile Mass, Rigid - Extremities Exam Extremities exam: normal inspection - Back Exam Back exam: NORMAL INSPECTION. absent: paraspinal tenderness - Neurological Exam Neurological exam: Alert, CN II-XII Intact, Oriented x3 - Psychiatric Exam Psychiatric exam: Normal Affect, Normal Mood Discharge Plan - Follow Up Plan Condition: STABLE Disposition: HOME/ ROUTINE Instructions: Urinary Tract Infection in Women (DC), Acute Pyelonephritis (DC) , Acute Pyelonephritis (GEN) Additional Instructions: Patient discharged to Home. Patient to follow up with primary care doctor in 1 week. Patient should return to an Emergency Department for any new or worsening symptoms. Referrals: Momo Pierce MD [Primary Care Provider] - <Faustina Cordoba - Last Filed: 12/07/16 17:17> Provider - Provider Date of Admission: 12/06/16 16:17 Attending physician: Faustina Cordoba MD Primary care physician: Momo Pierce MD Hospital Course - Lab Results Lab Results: Most Recent Lab Values WBC 8.0 10^3/ul (4.5-11.0) D 12/06/16 09:15 RBC 3.72 10^6/uL (3.5-6.1) 12/06/16 09:15 Hgb 12.1 g/dL (12.0-16.0) 12/06/16 09:15 Hct 34.1 % (36.0-48.0) L 12/06/16 09:15 MCV 91.7 fl (80.0-105.0) 12/06/16 09:15 MCH 32.5 pg (25.0-35.0) 12/06/16 09:15 MCHC 35.5 g/dl (31.0-37.0) 12/06/16 09:15 RDW 12.7 % (11.5-14.5) 12/06/16 09:15 Plt Count 231 10^3/uL (120.0-450.0) 12/06/16 09:15 MPV 9.3 fl (7.0-11.0) 12/06/16 09:15 Gran % 86.2 % (50.0-68.0) H 12/05/16 10:30 Lymph % (Auto) 6.8 % (22.0-35.0) L 12/05/16 10:30 [place] % (Auto) 6.8 % (1.0-6.0) H 12/05/16 10:30 Eos % (Auto) 0.1 % (1.5-5.0) L 12/05/16 10:30 Baso % (Auto) 0.1 % (0.0-3.0) 12/05/16 10:30 Gran # 12.86 (1.4-6.5) H 12/05/16 10:30 Lymph # 1.0 (1.2-3.4) L 12/05/16 10:30 [place] # 1.0 (0.1-0.6) H 12/05/16 10:30 Eos # 0.0 (0.0-0.7) 12/05/16 10:30 Baso # 0.01 K/mm3 (0.0-2.0) 12/05/16 10:30 pO2 45 mm/Hg (30-55) 12/04/16 08:45 VBG pH 7.46 (7.32-7.43) H 12/04/16 08:45 VBG pCO2 46.0 (40-60) 12/04/16 08:45 VBG HCO3 32.7 mmol/l (21-28) H 12/04/16 08:45 VBG Total CO2 34.1 mmol.L (22-28) H 12/04/16 08:45 VBG O2 Sat (Calc) 89.8 % (40-65) H 12/04/16 08:45 VBG Base Excess 7.7 mmol/L (0.0-2.0) H 12/04/16 08:45 VBG Potassium 3.2 mmol/L (3.6-5.2) L 12/04/16 08:45 Sodium 137.0 mmol/L (132-148) 12/04/16 08:45 Chloride 96.0 mmol/L (98-107) L 12/04/16 08:45 Glucose 308 mg/dl (65-105) H 12/04/16 08:45 Lactate 1.7 mmol/L (0.7-2.1) 12/04/16 08:45 FiO2 21.0 % 12/04/16 08:45 Sodium 138 mmol/L (132-148) 12/06/16 09:15 Potassium 3.8 mmol/L (3.6-5.0) 12/06/16 09:15 Chloride 101 mmol/L (95-110) 12/06/16 09:15 Carbon Dioxide 27 mmol/L (21-33) 12/06/16 09:15 Anion Gap 14 (10-20) 12/06/16 09:15 BUN 8 mg/dL (7-21) 12/06/16 09:15 Creatinine 0.6 mg/dL (0.5-1.4) 12/06/16 09:15 Est GFR ( Amer) > 60 12/06/16 09:15 Est GFR (Non-Af Amer) > 60 12/06/16 09:15 POC Glucose (mg/dL) 184 mg/dL (65-110) H 12/06/16 21:39 Random Glucose 144 mg/dL (70-110) H 12/06/16 09:15 Calcium 8.9 mg/dL (8.4-10.5) 12/06/16 09:15 Total Bilirubin 1.3 mg/dL (0.2-1.3) 12/04/16 08:45 AST 32 U/L (14-36) 12/04/16 08:45 ALT 41 U/L (7-56) 12/04/16 08:45 Alkaline Phosphatase 73 U/L (38-126) 12/04/16 08:45 Total Protein 7.9 g/dL (5.8-8.3) 12/04/16 08:45 Albumin 4.4 g/dL (3.0-4.8) 12/04/16 08:45 Globulin 3.4 gm/dL 12/04/16 08:45 Albumin/Globulin Ratio 1.3 (1.1-1.8) 12/04/16 08:45 Amylase 63 U/L (35-125) 12/04/16 08:45 Lipase 18 U/L (23-300) L 12/04/16 08:45 Beta HCG, Quant < 2.39 mIU/mL (0-6.15) 12/05/16 10:30 Venous Blood Potassium 3.2 mmol/L (3.6-5.2) L 12/04/16 08:45 Urine Color Yellow (YELLOW) 12/04/16 09:10 Urine Appearance Sl cloudy (CLEAR) 12/04/16 09:10 Urine pH 7.5 (4.7-8.0) 12/04/16 09:10 Ur Specific [place] 1.020 (1.005-1.035) 12/04/16 09:10 Urine Protein 100 mg/dL (<30 mg/dL) H 12/04/16 09:10 Urine Glucose (UA) 500 mg/dL (NEGATIVE) H 12/04/16 09:10 Urine Ketones 40 mg/dL (NEGATIVE) H 12/04/16 09:10 Urine Blood Large (NEGATIVE) H 12/04/16 09:10 Urine Nitrate Negative (NEGATIVE) 12/04/16 09:10 Urine Bilirubin Negative (NEGATIVE) 12/04/16 09:10 Urine Urobilinogen 4.0 E.U./dL (<1 E.U./dL) H 12/04/16 09:10 Ur Leukocyte Esterase Negative Genny/uL (NEGATIVE) 12/04/16 09:10 Urine RBC 5 - 10 /hpf (0-2) 12/04/16 09:10 Urine WBC 15 - 20 /hpf (0-6) 12/04/16 09:10 Ur Epithelial Cells 6 - 8 /hpf (0-5) 12/04/16 09:10 Urine Bacteria Many (NEG) 12/04/16 09:10 Urine HCG, Qual Negative (NEGATIVE) 12/04/16 09:10 Attending/Attestation - Attestation I have personally seen and examined this patient.: Yes I have fully participated in the care of the patient.: Yes I have reviewed all pertinent clinical information, including history, physical exam and plan: Yes Notes (Text): 12/07/16 17:16 attending note; Patient seen and examined with resident. Patient is a 21-year-old female With a past medical history of diabetes, asthma is admitted with fevers, chills and flank pain. CT abdomen is consistent with acute pyelonephritis. Treated with IV Rocephin. urine culture showed Escherichia coli. leukocytosis resolved. ID evaluation appreciated. Diabetes; continue Levemir and insulin sliding scale. upon discharge the patient will follow-up with PMD Dr. Pierce. Diagnosis; Acute pyelonephritis E coli UTI Diabetes
--- NOTE | 2016-12-07 16:07 | PN ---
SUBJECTIVE: The patient is in bed in no acute distress, nontoxic. PHYSICAL EXAMINATION: VITAL SIGNS: Temperature is 98, blood pressure is 130/90, respirations 20 and heart rate of 91. HEENT: Unremarkable. NECK: Supple. LUNGS: Decreased breath sounds. HEART: Normal S1 and S2. ABDOMEN: Soft. LABORATORY EXAMINATION: Reveals the white count is 8000. Chemistries are noted. Microbiology is noted. The blood cultures are negative. REVIEW OF ORDERS: Reveals the patient to be on ceftriaxone. ASSESSMENT AND PLAN: This is a 21-year-old female with history of diabetes and asthma and history of pyelonephritis, admitted with leukocytosis, fever and found to have sepsis with left-sided pyelonephritis with a birch-sensitive Escherichia coli, on ceftriaxone, may switch to p.o. Cipro and complete a total of 10 days of antibiotics. Luis Zhu MD
== END 2016-12-07 15:16 | disposition home or self-care (01) | DRG 901 ==
LOC: ED 08:10 → ERH 12:08 → 3RNO 13:38 → OBSVTOIN 12-06 16:17
PROVIDERS: ADMIT Internal Medicine; ATTEND Internal Medicine
DX: A41.9 Sepsis, unspecified organism (principal); N10 Acute pyelonephritis; B96.20 Unspecified Escherichia coli [E. coli] as the cause of diseases classified elsewhere; J45.909 Unspecified asthma, uncomplicated; E10.9 Type 1 diabetes mellitus without complications; Z87.59 Personal history of other complications of pregnancy, childbirth and the puerperium

== ENCOUNTER 2017-04-16 15:56 | Emergency (ER) | payer OTHER ==
--- NOTE | 2017-04-16 16:44 | ED PDOC ---
Arrival/HPI - General Historian: Patient <Juan Mallory - Last Filed: 04/16/17 20:44> <Vincent Miller - Last Filed: 04/16/17 21:06> - General Chief Complaint: Abdominal Pain Time Seen by Provider: 04/16/17 16:41 - History of Present Illness Narrative History of Present Illness (Text): 04/16/17 16:44 21 y/o female pmh including dka/dm/nephritic abscess/asthma, nkda, c/o rt. flank pain x 3 days with no fall or trauma. Aching pain, aggravated by palpitating on the rt. flank region, no hematuria, no night sweat, feels nausea when pain started, no night sweat, no rash, no weight loss, no other medical or psychological complaints. (Juan Mallory) Past Medical History - Provider Review Nursing Documentation Reviewed: Yes - Infectious Disease Hx of Infectious Diseases: None - Tetanus Immunization Tetanus Immunization: Unknown - Reproductive Menopause: No - Cardiac Hx Cardiac Disorders: No Hx Hypertension: No - Pulmonary Hx Asthma: Yes - Neurological HX Cerebrovascular Accident: No Hx Seizures: No - HEENT Hx HEENT Disorder: No - Renal Hx Renal Disorder: Yes (''KIDNEY INFECTION'') - Endocrine/Metabolic Hx Endocrine Disorders: Yes Hx Diabetes Mellitus Type 1: Yes - Hematological/Oncological Hx Cancer: No - Integumentary Hx Dermatological Disorder: No - Musculoskeletal/Rheumatological Hx Falls: No - Gastrointestinal Hx Gall Bladder Disease: Yes (CHOLECYSTECTOMY) - Genitourinary/Gynecological Hx Sexually Transmitted Diseases: No - Psychiatric Hx Psychophysiologic Disorder: No Hx Substance Use: Yes (THC) - Past Surgical History Past Surgical History: No Previous - Surgical History Hx Cholecystectomy: Yes - Anesthesia Hx Anesthesia: Yes Hx Anesthesia Reactions: No Hx Malignant Hyperthermia: No - Suicidal Assessment Feels Threatened In Home Enviroment: No <Juan Mallory - Last Filed: 04/16/17 20:44> Family/Social History - Physician Review Nursing Documentation Reviewed: Yes Family/Social History: Unknown Family HX Smoking Status: Light Smoker < 10 Cigarettes Daily Hx Alcohol Use: Yes Frequency of alcohol use: Socially Hx Substance Use: Yes (THC) Hx Substance Use Treatment: No <Juan Mallory - Last Filed: 04/16/17 20:44> Allergies/Home Meds <Juan Mallory - Last Filed: 04/16/17 20:44> <AngelaVincent - Last Filed: 04/16/17 21:06> Allergies/Adverse Reactions: Allergies shellfish derived Allergy (Verified 04/16/17 16:35) SWELLING Review of Systems - Review of Systems Constitutional: absent: Fatigue, Fevers Eyes: absent: Vision Changes ENT: absent: Hearing Changes Respiratory: absent: SOB, Cough Cardiovascular: absent: Chest Pain Gastrointestinal: Nausea, Other (+rt. flank pain). absent: Abdominal Pain, Diarrhea, Vomiting Skin: absent: Rash, Pruritis Neurological: absent: Headache, Dizziness Psychiatric: absent: Anxiety, Depression, Suicidal Ideation <Juan Mallory - Last Filed: 04/16/17 20:44> Physical Exam Vital Signs Reviewed: Yes Temperature: Afebrile Blood Pressure: Normal Pulse: Tachycardic Respiratory Rate: Normal Appearance: Positive for: Well-Appearing, Non-Toxic Pain Distress: Moderate Mental Status: Positive for: Alert and Oriented X 3 - Systems Exam Head: Present: Atraumatic, Normocephalic Pupils: Present: PERRL Extroacular Muscles: Present: EOMI Conjunctiva: Present: Normal Mouth: Present: Moist Mucous Membranes Neck: Present: Normal Range of Motion Respiratory/Chest: Present: Clear to Auscultation, Good Air Exchange. No: Respiratory Distress, Accessory Muscle Use Cardiovascular: Present: Regular Rate and Rhythm, Normal S1, S2. No: Murmurs Abdomen: Present: Normal Bowel Sounds, Other (negative funes and mcburney signs. ). No: Tenderness, Distention, Peritoneal Signs, Rebound, Guarding Back: Present: Normal Inspection, CVA Tenderness (+rt. cva tenderness) Upper Extremity: Present: Normal Inspection. No: Cyanosis, Edema Lower Extremity: Present: Normal Inspection. No: Edema Neurological: Present: GCS=15, Speech Normal, Motor Func Grossly Intact, Gait Normal, Memory Normal Skin: Present: Warm, Dry, Normal Color. 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 <Juan Mallory - Last Filed: 04/16/17 20:44> <Vincent Miller - Last Filed: 04/16/17 21:06> ED Course and Treatment: 04/16/17 17:10 -labs/ua -CT abdomen and pelvis -Chest xray -IVF/morphine/pepcid/zofran -Observe and reassess 04/16/17 20:14 -Chest xray: no active disease -CT abdomen and pelvis show no acute findings -labs are non-significant -UA show no UTI -Pain decreased, borderline tachycardia around 96-105, will order d-dimer 04/16/17 20:44 -Pt.'s flank pain come back again, morphien 4mg and zofran 4mg IV ordered again , pending d-dimer 04/16/17 20:55 -Wells criteria is 4.5 point with moderately elevated. -Case discussed and endorsed to Dr. Miller to follow up on the d-dimer and dispo, he will dispo the patient. (Juan Mallory) - Lab Interpretations Lab Results: 04/16/17 19:37 04/16/17 19:37 Lab Results 04/16/17 19:40: Urine Color Yellow, Urine Appearance Turbid, Urine pH 7.5, Ur Specific [place] 1.020, Urine Protein 100 H, Urine Glucose (UA) Negative, Urine Ketones Negative, Urine Blood Trace-intact H, Urine Nitrate Negative, Urine Bilirubin Negative, Urine Urobilinogen 1.0 H, Ur Leukocyte Esterase Negative, Urine RBC 0 - 2, Urine WBC 2 - 5, Ur Epithelial Cells 4 - 5, Urine Other Mucus 04/16/17 19:37: D-Dimer, Quantitative < 200 04/16/17 19:37: WBC 10.7 D, RBC 4.35, Hgb 13.8, Hct 38.8, MCV 89.2, MCH 31.7, MCHC 35.6, RDW 14.2, Plt Count 283, MPV 9.4, Gran % 82.1 H, Lymph % (Auto) 12.8 L, [place] % (Auto) 5.0, Eos % (Auto) 0.0 L, Baso % (Auto) 0.1, Gran # 8.76 H, Lymph # 1.4, [place] # 0.5, Eos # 0.0, Baso # 0.01 04/16/17 19:37: Sodium 141, Potassium 3.9, Chloride 101, Carbon Dioxide 27, Anion Gap 17, BUN 12, Creatinine 0.7, Est GFR ( Amer) > 60, Est GFR (Non- Af Amer) > 60, Random Glucose 190 H, Calcium 9.0, Magnesium 1.7, Total Bilirubin 0.7, AST 29, ALT 27, Alkaline Phosphatase 53, Total Protein 7.9, Albumin 4.5, Globulin 3.4, Albumin/Globulin Ratio 1.3, Lipase 64 04/16/17 18:27: POC Glucose (mg/dL) 148 H - RAD Interpretation Radiology Orders: 04/16/17 17:06 ABD & PELVIS W/O PO OR IV CONT [CT] Stat CHEST PORTABLE [RAD] Stat Chest x-ray: HISTORY: rt. flank pain, medical clearance COMPARISON: 12/04/2016 FINDINGS: LUNGS: No active pulmonary disease. PLEURA: No significant pleural effusion identified, no pneumothorax apparent. CARDIOVASCULAR: Normal. OSSEOUS STRUCTURES: No significant abnormalities. VISUALIZED UPPER ABDOMEN: Normal. OTHER FINDINGS: None. IMPRESSION: No active disease. No significant interval change compared to the prior examination(s). CTA Chest: (Juan Mallory) - Medication Orders Current Medication Orders: Sodium Chloride (Sodium Chloride 0.9%) 1,000 mls @ 250 mls/hr IV .Q4H MARIA A Last Admin: 04/16/17 18:00 Dose: 250 mls/hr eMAR Start Stop Document 04/16/17 18:00 RG (Rec: 04/16/17 18:37 RG [id number]) Intravenous Solution Start Date 04/16/17 Start Time 18:00 Discontinued Medications Famotidine (Pepcid) 20 mg IVP STAT STA Stop: 04/16/17 17:07 Last Admin: 04/16/17 18:00 Dose: 20 mg IVP Administration Document 04/16/17 18:00 RG (Rec: 04/16/17 18:37 [place] [id number]) Charges for Administration # of IVP Administrations 1 Morphine Sulfate (Morphine) 4 mg IVP STAT STA Stop: 04/16/17 17:07 Last Admin: 04/16/17 18:00 Dose: 4 mg MAR Pain Assessment Document 04/16/17 18:00 RG (Rec: 04/16/17 18:36 [place] [id number]) Pain Reassessment Is this a pain reassessment? Yes Sleep Is patient sleeping during reassessment? No Presence of Pain Presence of Pain Yes Pain Scale Used Pain Scale Used Numeric Location Upper or Lower Lower Pain Location Body Site Back Description Description Constant Intensity of Pain at present 8 Pain Behavior Facial Grimacing Aggravating Factors Changing Position IVP Administration Document 04/16/17 18:00 RG (Rec: 04/16/17 18:[id number]) Charges for Administration # of IVP Administrations 1 Morphine Sulfate (Morphine) 4 mg IVP STAT STA Stop: 04/16/17 20:44 Ondansetron HCl (Zofran Inj) 4 mg IVP STAT STA Stop: 04/16/17 17:08 Last Admin: 04/16/17 18:00 Dose: 4 mg IVP Administration Document 04/16/17 18:00 RG (Rec: 04/16/17 18:37 [place] [id number]) Charges for Administration # of IVP Administrations 1 Ondansetron HCl (Zofran Inj) 4 mg IVP STAT STA Stop: 04/16/17 20:44 - PA / FACTORY WORKER / Resident Statement / has reviewed & agrees with the documentation as recorded. <Juan Mallory - Last Filed: 04/16/17 20:44> - PA / FACTORY WORKER / Resident Statement / has reviewed & agrees with the documentation as recorded. / has examined the patient and agrees with the treatment plan. <Vincent Miller - Last Filed: 04/16/17 21:06> Disposition/Present on Arrival - Present on Arrival Any Indicators Present on Arrival: No History of DVT/PE: No History of Uncontrolled Diabetes: No Urinary Catheter: No History of Decub. Ulcer: No History Surgical Site Infection Following: None - Disposition Have Diagnosis and Disposition been Completed?: Yes Disposition Time: 20:55 <Juan Mallory - Last Filed: 04/16/17 20:44> - Present on Arrival Any Indicators Present on Arrival: No - Disposition Have Diagnosis and Disposition been Completed?: Yes Disposition Time: 21:00 Patient Plan: Discharge <Vincent Miller - Last Filed: 04/16/17 21:06> - Disposition Diagnosis: Flank pain Disposition: HOME/ ROUTINE Patient Problems: Current Active Problems Problem Status Onset Flank pain Acute Condition: GOOD Discharge Instructions (ExitCare): Flank Pain (ED) Additional Instructions: Rest/no strenuous physical activity/medication as prescribed/follow up with your doctor this week Prescriptions: Naproxen [Naprosyn] 500 mg PO BID PRN #10 tab PRN Reason: Pain Referrals: Momo Pierce MD [Primary Care Provider] - Follow up with primary Forms: [employer] (Ugandan)
[2017-04-16] MEDS ORDERED: Morphine 4 mg/ml ISec IVP STA ×2 (17:06→20:43)
[2017-04-16] MEDS ORDERED: Sodium Chloride 0.9% 1,000 ML IV SCH (17:15)
[2017-04-16 18:20] VITALS: TEMP 97.6
[2017-04-16 18:24] VITALS: BMI 27.4
--- NOTE | 2017-04-16 18:41 | RAD ---
HISTORY: rt. flank pain, medical clearance COMPARISON: 12/04/2016 FINDINGS: LUNGS: No active pulmonary disease. PLEURA: No significant pleural effusion identified, no pneumothorax apparent. CARDIOVASCULAR: Normal. OSSEOUS STRUCTURES: No significant abnormalities. VISUALIZED UPPER ABDOMEN: Normal. OTHER FINDINGS: None. IMPRESSION: No active disease. No significant interval change compared to the prior examination(s). Concordant results with the preliminary interpretation rendered by the emergency department physician procedure.
[2017-04-16 19:47] LABS: BASO # 0.01 K/mm3 (0.0-2.0); BASO % 0.1 % (0.0-3.0); GRAN # 8.76 (1.4-6.5); GRAN % 82.1 % (50.0-68.0); HEMOGLOBIN 13.8 g/dL (12.0-16.0); LYMPH # 1.4 (1.2-3.4); LYMPH % 12.8 % (22.0-35.0); MEAN CELL VOLUME 89.2 fl (80.0-105.0); MEAN CORPUSCULAR HEMOGLOBIN 31.7 pg (25.0-35.0); MEAN CORPUSCULAR HGB CONC 35.6 g/dl (31.0-37.0); MEAN PLATELET VOLUME 9.4 fl (7.0-11.0); MONO # 0.5 (0.1-0.6); RBC 4.35 10^6/uL (3.5-6.1); RED CELL DISTRIBUTION WIDTH 14.2 % (11.5-14.5); WHITE BLOOD COUNT 10.7 10^3/ul (4.5-11.0)
[2017-04-16 19:48] LABS: PH,URINE 7.5 (4.7-8.0); URINE APPEARANCE TURBID (CLEAR); URINE BILIRUBIN NEGATIVE (NEGATIVE); URINE BLOOD TRACE-INTACT (NEGATIVE); URINE COLOR YELLOW (YELLOW); URINE GLUCOSE (UA) NEGATIVE (NEGATIVE); URINE LEUKOCYTE ESTERASE NEGATIVE Leu/uL (NEGATIVE); URINE NITRATE NEGATIVE (NEGATIVE); URINE PROTEIN 100 mg/dL (<30 mg/dL)
[2017-04-16 19:49] LABS: URINE RBC 0 - 2 /hpf (0-2)
[2017-04-16 20:00] LABS: ALB/GLOB RATIO 1.3 (1.1-1.8); ALBUMIN 4.5 g/dL (3.0-4.8); ALT/SGPT 27 U/L (7-56); AST/SGOT 29 U/L (14-36); BLOOD UREA NITROGEN 12 mg/dL (7-21); GFR AFRICAN-AMERICAN > 60; GFR NON-AFRICAN AMERICAN > 60; LIPASE 64 U/L (23-300); MAGNESIUM 1.7 mg/dL (1.7-2.2)
--- NOTE | 2017-04-16 20:05 | CT ---
EXAM: CT Abdomen and Pelvis Without Intravenous Contrast CLINICAL HISTORY: 21 years old, female; Pain; Abdominal pain; Flank; Right; Additional info: Rt. Flank pain x 3 days TECHNIQUE: Axial computed tomography images of the abdomen and pelvis without intravenous contrast. All CT scans at this facility use one or more dose reduction techniques, viz.: automated exposure control; ma/kV adjustment per patient size (including targeted exams where dose is matched to indication; i.e. head); or iterative reconstruction technique. Coronal and sagittal reformatted images were created and reviewed. COMPARISON: CT - ABD PELVIS PO IV CONTRAST 2016-12-04 10:41 FINDINGS: Lower thorax: 0.3 cm nodule vs focal scarring within left lower lobe, stable. ABDOMEN: Liver: Fatty infiltration. Gallbladder and bile ducts: Cholecystectomy. No significant ductal dilation. Pancreas: Unremarkable. No ductal dilation. Spleen: No splenomegaly. Adrenals: No mass. Kidneys and ureters: No renal calculi. No hydronephrosis. Stomach and bowel: Segmental areas of probable underdistention of colon. No definite mural thickening. No obstruction. Appendix: Normal caliber. No inflammation. PELVIS: Bladder: Unremarkable. No stones. Reproductive: Unremarkable as visualized. ABDOMEN and PELVIS: Intraperitoneal space: Trace free fluid within pelvis. No free air. Bones/joints: Osteopoikilosis. No acute fracture. Soft tissues: Unremarkable. Vasculature: Unremarkable. No aneurysm. Lymph nodes: No pathologically enlarged lymph nodes. IMPRESSION: 1. No definite CT evidence of urolithiasis. 2. Incidental/non-acute findings are described above.
[2017-04-16 20:09] VITALS: BP 126/81; PULSE 90; RESP 16; O2SAT 100
== END 2017-04-16 22:00 | disposition home or self-care (01) ==
LOC: ED 15:56
DX: R10.9 Unspecified abdominal pain (principal); E10.8 Type 1 diabetes mellitus with unspecified complications
CPT/HCPCS: 71045; 74176; 80053; 81001; 82948; 83690; 83735; 85025; 85378; 96374; 96375; 96376; 99284; J2270; J2405; J7040

== ENCOUNTER 2017-05-04 10:38 | Emergency (ER) | payer OTHER ==
--- NOTE | 2017-05-04 11:03 | ED PDOC ---
Arrival/HPI - General Time Seen by Provider: 05/04/17 11:02 Historian: Patient - History of Present Illness Narrative History of Present Illness (Text): 05/04/17 11:29 Pain is right upper quadrant. Last bowel movement was a few days ago. LMP . Here on 12th for right flank pain since 04/13/17. Patient states she vomited 20 times since this morning (white and yellow liquid). Patient is an uncontrolled diabetic on lantus 10 u QHS and novolog 7 u before each meal. Patient says she takes her medications. Patient states lately glucose is in 300s " usually "100s." Patient states she feels nauseaus and dizzy due to weakness and lack of appetite. Patient states she isn't able to hold anything down lately due to vomiting. 12/30/16 A1c 8.6 PMH: gastroparesis; hx of ectopic , T1DM at age 11, DKA, nephritic abscess, asthma, left pyelonephritis and right pyelonephritis (12/04/16), history of recurrent UTIs PSHx: cholecystectomy 2017; laproscopic removal of right ectopic/removal of hemoperitoneum 2016 Allergies: Shellfish - swelling of lips FamHx: Mother- DM, leukemia, heart disease Father- DM; Maternal aunt- cervical CA SocialHx: smokes 5 cigarettes/day, former ETOH abuse, lives with family; works at [employer] Time/Duration: < month Symptom Course: Worsening Context: Other (moving head makes it worse) Past Medical History - Provider Review Nursing Documentation Reviewed: Yes - Infectious Disease Hx of Infectious Diseases: None - Tetanus Immunization Tetanus Immunization: Unknown - Cardiac Hx Cardiac Disorders: No Hx Hypertension: No - Pulmonary Hx Asthma: Yes - Neurological HX Cerebrovascular Accident: No Hx Seizures: No - HEENT Hx HEENT Disorder: No - Renal Hx Renal Disorder: Yes (''KIDNEY INFECTION'') - Endocrine/Metabolic Hx Endocrine Disorders: Yes Hx Diabetes Mellitus Type 1: Yes - Hematological/Oncological Hx Cancer: No - Integumentary Hx Dermatological Disorder: No - Musculoskeletal/Rheumatological Hx Falls: No - Gastrointestinal Hx Gall Bladder Disease: Yes (CHOLECYSTECTOMY) - Genitourinary/Gynecological Hx Sexually Transmitted Diseases: No - Psychiatric Hx Psychophysiologic Disorder: No Hx Substance Use: Yes (THC) - Past Surgical History Past Surgical History: No Previous - Surgical History Hx Cholecystectomy: Yes - Anesthesia Hx Anesthesia: Yes Hx Anesthesia Reactions: No Hx Malignant Hyperthermia: No - Suicidal Assessment Feels Threatened In Home Enviroment: No Family/Social History - Physician Review Nursing Documentation Reviewed: Yes Family/Social History: Unknown Family HX Smoking Status: Light Smoker < 10 Cigarettes Daily Hx Alcohol Use: Yes Hx Substance Use: Yes (THC) Hx Substance Use Treatment: No Allergies/Home Meds Allergies/Adverse Reactions: Allergies shellfish derived Allergy (Verified 05/04/17 11:22) SWELLING Review of Systems - Physician Review All systems were reviewed & negative as marked: Yes - Review of Systems Constitutional: Normal. absent: Fatigue, Weight Change, Fevers Eyes: Normal. absent: Vision Changes, Eye Pain ENT: Normal. absent: Hearing Changes, Tinnitus, TMJ Pain Respiratory: Normal. absent: SOB, Cough, Sputum Cardiovascular: Normal. absent: Chest Pain, Palpitations, Edema Gastrointestinal: Normal, Abdominal Pain, Constipation, Nausea, Vomiting. absent: Stool Changes, Diarrhea, Appetite Changes, Hematochezia, Hematemesis Genitourinary Female: absent: Dysuria, Frequency, Urine Output Changes Musculoskeletal: Normal. absent: Arthralgias, Back Pain, Neck Pain, Joint Swelling, Myalgias Skin: Normal. absent: Rash, Pruritis, Skin Lesions Neurological: Normal. absent: Headache, Dizziness, Focal Weakness, Gait Changes , Speech Changes, Facial Droop, Disequilibrium Endocrine: absent: Polyuria, Polydipsia Hemo/Lymphatic: absent: Adenopathy, Easy Bleeding, Easy Bruising Psychiatric: absent: Anxiety, Depression, Suicidal Ideation Physical Exam Vital Signs Reviewed: Yes Vital Signs Temp Pulse Resp BP Pulse Ox 05/04/17 14:34 105 H 18 145/96 H 100 05/04/17 12:44 109 H 18 147/100 H 100 05/04/17 11:16 98.4 F 05/04/17 11:09 111 H 16 155/98 H 100 Temperature: Afebrile Blood Pressure: Hypertensive Pulse: Tachycardic Respiratory Rate: Normal Appearance: Positive for: Non-Toxic, Comfortable Pain Distress: Mild Mental Status: Positive for: Alert and Oriented X 3 - Systems Exam Head: Present: Atraumatic, Normocephalic Pupils: Present: PERRL Extroacular Muscles: Present: EOMI Conjunctiva: Present: Normal Mouth: Present: Moist Mucous Membranes Neck: Present: Normal Range of Motion, Trachea Midline. No: JVD, Lymphadenopathy Respiratory/Chest: Present: Clear to Auscultation, Good Air Exchange. No: Respiratory Distress, Accessory Muscle Use Cardiovascular: Present: Regular Rate and Rhythm, Normal S1, S2. No: Murmurs Abdomen: Present: Distention (soft and distended), Scars (laparoscopic port scars). No: Tenderness (patient has no tenderness on physical exam ), Normal Bowel Sounds (hypoactive bowel sounds), Peritoneal Signs, Rebound, Guarding, Ostomy Tubes, Mass/Organomegaly Back: Present: Normal Inspection. No: CVA Tenderness, Midline Tenderness, Paraspinal Tenderness Upper Extremity: Present: Normal Inspection, Normal ROM, NORMAL PULSES, Capillary Refill < 2s. No: Edema, Tenderness, Swelling, Erythema Lower Extremity: Present: Normal Inspection, NORMAL PULSES, Normal ROM, Capillary Refill < 2 s. No: Edema, Swelling, Erythema Neurological: Present: GCS=15, CN II-XII Intact, Speech Normal, Normal Sensory Function, Norm Deep Tendon Reflexes. No: Motor Func Grossly Intact Skin: Present: Warm, Dry, Rashes, Normal Color. No: Diaphoretic Psychiatric: Present: Alert, Oriented x 3, Normal Insight, Normal Concentration Medical Decision Making ED Course and Treatment: 05/04/17 13:02 urinalysis, 100H protein, Glucose, no leukocyte esterase, no nitrates CBC CMP, Mg, Ph NS 500cc bolus, Toradol 30mg IVP Stat Zofran 8mg IVP STAT Insulin Humalin 7units SC Once Lipase 05/04/17 13:04 spoke to patient about complications of poor diabetes control leading to gastroparesis 05/04/17 16:21 patient refused to finish last 1L normal Saline bolus Reassessment Condition: Re-examined, Unchanged - Lab Interpretations Lab Results: 05/04/17 12:40 05/04/17 12:40 Lab Results 05/04/17 12:40: Sodium 135, Potassium 3.3 L, Chloride 83 L, Carbon Dioxide 35 H , Anion Gap 21 H, BUN 13, Creatinine 0.9, Est GFR ( Amer) > 60, Est GFR ( Non-Af Amer) > 60, Random Glucose 245 H, Calcium 9.6, Phosphorus 3.2, Magnesium 1.6 L, Total Bilirubin 1.1, AST 47 H D, ALT 37, Alkaline Phosphatase 60, Total Protein 8.0, Albumin 4.5, Globulin 3.5, Albumin/Globulin Ratio 1.3, Lipase 60 05/04/17 12:40: WBC 12.7 H, RBC 4.48, Hgb 14.3, Hct 39.0, MCV 87.1, MCH 31.9, MCHC 36.7, RDW 13.7, Plt Count 267, MPV 9.4, Gran % 83.5 H, Lymph % (Auto) 12.2 L, [place] % (Auto) 4.2, Eos % (Auto) 0.0 L, Baso % (Auto) 0.1, Gran # 10.58 H, Lymph # 1.5, [place] # 0.5, Eos # 0.0, Baso # 0.01 05/04/17 12:00: Urine Color Yellow, Urine Appearance Clear, Urine pH 6.5, Ur Specific [place] 1.025, Urine Protein 100 H, Urine Glucose (UA) 500 H, Urine Ketones Negative, Urine Blood Negative, Urine Nitrate Negative, Urine Bilirubin Negative, Urine Urobilinogen 0.2, Ur Leukocyte Esterase Negative, Urine RBC 0 - 2, Urine WBC 2 - 5, Ur Epithelial Cells 3 - 4, Urine Bacteria Mod hypokalemia hypochloremia Anion gap (Na-Cl-CO2) 135-118 = 17 Mag 1.6 UA: high protein and glucose I have reviewed the lab results: Yes Interpretation: Abnormal lab values - RAD Interpretation Narrative RAD Interpretations (Text): 05/04/17 14:[address] Abdomen and Pelvis on recent visit to ED showed fatty liver and no acute findings 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 - Medication Orders Current Medication Orders: Sodium Chloride (Sodium Chloride 0.9%) 1,000 mls @ 999 mls/hr IV .Q1H1M MARIA A Stop: 05/04/17 16:15 Last Admin: 05/04/17 15:47 Dose: 999 mls/hr eMAR Start Stop Document 05/04/17 15:47 OCS (Rec: 05/04/17 15:47 OCS [id number]) Intravenous Solution Start Date 05/04/17 Start Time 15:47 End Date 05/04/17 End time 16:48 Total Infusion Time 61 Discontinued Medications Acetaminophen (Tylenol 325mg Tab) 975 mg PO STAT STA Stop: 05/04/17 14:14 Last Admin: 05/04/17 14:46 Dose: 975 mg MAR Pain/Vitals Document 05/04/17 14:46 SZA (Rec: 05/04/17 14:46 SZA [id number]) Pain Reassessment Is This A Pain ReAssessment? No Sleep Is patient sleeping during reassessment? No Presence of Pain Presence of Pain Yes Sodium Chloride (Sodium Chloride 0.9%) 500 mls @ 999 mls/hr IV .Q31M STA Stop: 05/04/17 12:01 Last Admin: 05/04/17 12:25 Dose: 999 mls/hr eMAR Start Stop Document 05/04/17 12:25 OCS (Rec: 05/04/17 12:26 OCS [id number]) Intravenous Solution Start Date 05/04/17 Start Time 12:26 End Date 05/04/17 End time 12:56 Total Infusion Time 30 Sodium Chloride (Sodium Chloride 0.9%) 1,000 mls @ 100 mls/hr IV .Q10H MARIA A Magnesium Sulfate/Dextrose (Magnesium Sulfate 1 Gm/100 Ml D5w) 1 gm in 100 mls @ 100 mls/hr IVPB ONCE ONE Stop: 05/04/17 15:10 Last Admin: 05/04/17 15:45 Dose: 100 mls/hr eMAR Start Stop Document 05/04/17 15:45 OCS (Rec: 05/04/17 15:45 OCS [id number]) Intravenous Solution Start Date 05/04/17 Start Time 15:45 End Date 05/04/17 End time 16:45 Total Infusion Time 60 Sodium Chloride (Sodium Chloride 0.9%) 1,000 mls @ 150 mls/hr IV .Q6H40M [facility] Stop: 05/05/17 02:49 Insulin Human Regular (Humulin R) 7 units SC ONCE ONE Stop: 05/04/17 11:46 Last Admin: 05/04/17 12:24 Dose: 7 units MAR Blood Glucose Document 05/04/17 12:24 OCS (Rec: 05/04/17 12:25 OCS [id number]) Blood Glucose Finger Stick Blood Glucose (70-120) 282 Subcutaneous Administrations Document 05/04/17 12:24 OCS (Rec: 05/04/17 12:25 OCS [id number]) Injection Site MAR Injection Site Right Arm Charges for Administration # of Subcutaneous Administrations 1 Ketorolac Tromethamine (Toradol) 30 mg IVP STAT STA Stop: 05/04/17 11:38 Last Admin: 05/04/17 12:24 Dose: 30 mg MAR Pain Assessment Document 05/04/17 12:24 OCS (Rec: 05/04/17 12:24 OCS [id number]) Pain Reassessment Is this a pain reassessment? Yes Sleep Is patient sleeping during reassessment? No Presence of Pain Presence of Pain Yes Pain Scale Used Pain Scale Used Numeric Location Left, Right or Bilateral Right Pain Location Body Site Abdomen Description Description Constant Intensity of Pain at present 10 Aggravating Factors ADL's IVP Administration Document 05/04/17 12:24 OCS (Rec: 05/04/17 12:24 OCS [id number]) Charges for Administration # of IVP Administrations 1 Metoclopramide HCl (Reglan) 10 mg IVP STAT STA Stop: 05/04/17 14:10 Last Admin: 05/04/17 15:46 Dose: 10 mg IVP Administration Document 05/04/17 15:46 OCS (Rec: 05/04/17 15:46 OCS [id number]) Charges for Administration # of IVP Administrations 1 Ondansetron HCl (Zofran Inj) 8 mg IVP STAT STA Stop: 05/04/17 11:34 Last Admin: 05/04/17 12:24 Dose: 8 mg IVP Administration Document 05/04/17 12:24 OCS (Rec: 05/04/17 12:24 OCS [id number]) Charges for Administration # of IVP Administrations 1 Potassium Chloride (K-Dur 20 Meq Er Tab) 40 meq PO STAT STA Stop: 05/04/17 14:16 Last Admin: 05/04/17 14:46 Dose: 40 meq Disposition/Present on Arrival - Present on Arrival Any Indicators Present on Arrival: No History of DVT/PE: No History of Uncontrolled Diabetes: No Urinary Catheter: No History of Decub. Ulcer: No History Surgical Site Infection Following: None - Disposition Have Diagnosis and Disposition been Completed?: Yes Diagnosis: Gastroparesis, Uncontrolled diabetes mellitus, Leukocytosis Disposition: HOME/ ROUTINE Disposition Time: 16:28 Patient Plan: Discharge Patient Problems: Current Active Problems Problem Status Onset Gastroparesis Acute Uncontrolled diabetes mellitus Acute Leukocytosis Acute Condition: IMPROVED Additional Instructions: follow up with primary care doctor for management of fatty liver, and diabetes return to ED if symptoms of nausea, vomiting, weakness, problems with bowel movements, vision changes, seizures, urinary issues stay hydrated check blood sugars, take insulin patient refused to finish last 1L normal Saline bolus Prescriptions: Metoclopramide [Reglan] 10 mg PO Q4H #24 tab Referrals: Momo Pierce MD [Primary Care Provider] - Follow up with primary Forms: WORK NOTE
[2017-05-04 11:15] VITALS: O2SAT 100; BMI 32.5
[2017-05-04 11:17] VITALS: TEMP 98.4
[2017-05-04] MEDS ORDERED: Sodium Chloride 0.9% 500 ML IV STA (11:31)
[2017-05-04] MEDS ORDERED: Insulin Regular 1 UNITS/0.01 ML ML SC ONE (11:45)
[2017-05-04 12:17] LABS: PH,URINE 6.5 (4.7-8.0); URINE BILIRUBIN NEGATIVE (NEGATIVE); URINE BLOOD NEGATIVE (NEGATIVE); URINE GLUCOSE (UA) 500 mg/dL (NEGATIVE); URINE LEUKOCYTE ESTERASE NEGATIVE Leu/uL (NEGATIVE); URINE NITRATE NEGATIVE (NEGATIVE); URINE PROTEIN 100 mg/dL (<30 mg/dL); URINE UROBILINOGEN 0.2 E.U./dL (<1 E.U./dL)
[2017-05-04 12:20] LABS: URINE APPEARANCE CLEAR (CLEAR); URINE COLOR YELLOW (YELLOW)
[2017-05-04 12:27] LABS: URINE RBC 0 - 2 /hpf (0-2)
[2017-05-04 12:28] LABS: URINE BACTERIA MOD (NEG)
[2017-05-04 12:45] VITALS: RESP 18
[2017-05-04 13:03] LABS: BASO # 0.01 K/mm3 (0.0-2.0); BASO % 0.1 % (0.0-3.0); GRAN # 10.58 (1.4-6.5); GRAN % 83.5 % (50.0-68.0); HEMOGLOBIN 14.3 g/dL (12.0-16.0); LYMPH # 1.5 (1.2-3.4); LYMPH % 12.2 % (22.0-35.0); MEAN CELL VOLUME 87.1 fl (80.0-105.0); MEAN CORPUSCULAR HEMOGLOBIN 31.9 pg (25.0-35.0); MEAN CORPUSCULAR HGB CONC 36.7 g/dl (31.0-37.0); MEAN PLATELET VOLUME 9.4 fl (7.0-11.0); MONO # 0.5 (0.1-0.6); MONO % 4.2 % (1.0-6.0); RBC 4.48 10^6/uL (3.5-6.1); RED CELL DISTRIBUTION WIDTH 13.7 % (11.5-14.5); WHITE BLOOD COUNT 12.7 10^3/ul (4.5-11.0)
[2017-05-04] MEDS ORDERED: Sodium Chloride 0.9% 1,000 ML IV SCH ×2 (13:30→14:15)
[2017-05-04 13:45] LABS: ALB/GLOB RATIO 1.3 (1.1-1.8); ALBUMIN 4.5 g/dL (3.0-4.8); ALT/SGPT 37 U/L (7-56); AST/SGOT 47 U/L (14-36); BLOOD UREA NITROGEN 13 mg/dL (7-21); CALCIUM 9.6 mg/dL (8.4-10.5); GFR AFRICAN-AMERICAN > 60; GFR NON-AFRICAN AMERICAN > 60; LIPASE 60 U/L (23-300); MAGNESIUM 1.6 mg/dL (1.7-2.2)
[2017-05-04] MEDS ORDERED: Magnesium Sulfate 1 gm in D5W 1 GM/100 ML BAG IVPB ONE (14:11)
[2017-05-04] MEDS ORDERED: Potassium Chloride 20 mEq ER Tab PO STA (14:15)
[2017-05-04] MEDS: Sodium Chloride 0.9% 1,000 ML IV SCH ×2 (14:45→15:47)
[2017-05-04 16:17] VITALS: BP 150/94; PULSE 97
== END 2017-05-04 16:18 | disposition home or self-care (01) ==
LOC: ED 10:38
DX: E10.43 Type 1 diabetes mellitus with diabetic autonomic (poly)neuropathy (principal); K31.84 Gastroparesis; Z79.4 Long term (current) use of insulin; D72.829 Elevated white blood cell count, unspecified
CPT/HCPCS: 80053; 81001; 83690; 83735; 84100; 85025; 87086; 96361; 96365; 96375; 99284; J1885; J2405; J2765; J3475; J7040

== ENCOUNTER 2017-06-01 09:39 | Emergency (ER) | payer OTHER ==
[2017-06-01 09:40] VITALS: BMI 27.4
[2017-06-01 09:50] VITALS: TEMP 98.4; O2SAT 100
[2017-06-01] MEDS ORDERED: Sodium Chloride 0.9% 1,000 ML IV STA (10:00)
--- NOTE | 2017-06-01 10:18 | ED PDOC ---
Arrival/HPI - General Chief Complaint: Abdominal Pain Time Seen by Provider: 06/01/17 09:49 Historian: Patient - History of Present Illness Narrative History of Present Illness (Text): 06/01/17 10:10 21yo female with PMHx of Asthma and IDDM who present with complaint of right flank/RUQ abdominal pain with associated nausea and multiple episodes of nonbloody/billious vomiting x 2days. States she is unable to keep anything down. She is on Lantus 10u qhs and Novolog 5units mornings. States she did not take her Insulin this morning. she denies fever,chills, diarrhea, constipation, hematemesis, hematochezia, chest pain, any other complaint. Past Medical History - Provider Review Nursing Documentation Reviewed: Yes - Infectious Disease Hx of Infectious Diseases: None - Tetanus Immunization Tetanus Immunization: Unknown - Cardiac Hx Cardiac Disorders: No Hx Hypertension: No - Pulmonary Hx Respiratory Disorders: Yes Hx Asthma: Yes - Neurological Hx Neurological Disorder: No HX Cerebrovascular Accident: No Hx Seizures: No - HEENT Hx HEENT Disorder: No - Renal Hx Renal Disorder: Yes Hx Kidney Stones: Yes - Endocrine/Metabolic Hx Endocrine Disorders: Yes Hx Diabetes Mellitus Type 1: Yes - Hematological/Oncological Hx Cancer: No - Integumentary Hx Dermatological Disorder: No - Musculoskeletal/Rheumatological Hx Musculoskeletal Disorders: No - Gastrointestinal Hx Gastrointestinal Disorders: Yes Hx Gall Bladder Disease: Yes (CHOLECYSTECTOMY) Hx Nausea: Yes - Genitourinary/Gynecological Hx Genitourinary Disorders: Yes Hx Urinary Tract Infection: Yes - Psychiatric Hx Psychophysiologic Disorder: Yes Hx Substance Use: Yes (THC) - Past Surgical History Past Surgical History: No Previous - Surgical History Hx Cholecystectomy: Yes - Anesthesia Hx Anesthesia: Yes Hx Anesthesia Reactions: No Hx Malignant Hyperthermia: No - Suicidal Assessment Feels Threatened In Home Enviroment: No Family/Social History - Physician Review Nursing Documentation Reviewed: Yes Family/Social History: Unknown Family HX Smoking Status: Light Smoker < 10 Cigarettes Daily Hx Alcohol Use: Yes Hx Substance Use: Yes (THC) Hx Substance Use Treatment: No Allergies/Home Meds Allergies/Adverse Reactions: Allergies shellfish derived Allergy (Verified 06/01/17 09:43) SWELLING Review of Systems - Physician Review All systems were reviewed & negative as marked: Yes - Review of Systems Constitutional: Normal Eyes: Normal ENT: Normal Respiratory: Normal Cardiovascular: Normal Gastrointestinal: Abdominal Pain, Nausea, Vomiting. absent: Constipation, Diarrhea, Hematochezia, Hematemesis Genitourinary Female: Normal Musculoskeletal: Normal Skin: Normal Neurological: Normal Endocrine: Normal Hemo/Lymphatic: Normal Psychiatric: Normal Physical Exam Vital Signs Reviewed: Yes Vital Signs Temp Pulse Resp BP Pulse Ox 06/01/17 13:19 85 18 138/74 100 06/01/17 11:22 99 H 18 142/86 100 06/01/17 09:48 98.4 F 113 H 16 146/91 H 100 Temperature: Afebrile Blood Pressure: Normal Pulse: Tachycardic Respiratory Rate: Normal Appearance: Positive for: Well-Appearing, Non-Toxic, Comfortable Pain Distress: None Mental Status: Positive for: Alert and Oriented X 3 Finger Stick Blood Glucose: 222 - Systems Exam Head: Present: Atraumatic, Normocephalic Pupils: Present: PERRL Extroacular Muscles: Present: EOMI Conjunctiva: Present: Normal Mouth: Present: Moist Mucous Membranes Neck: Present: Normal Range of Motion Respiratory/Chest: Present: Clear to Auscultation, Good Air Exchange. No: Respiratory Distress, Accessory Muscle Use Cardiovascular: Present: Regular Rate and Rhythm, Normal S1, S2. No: Murmurs Abdomen: Present: Tenderness (right flank/RUQ tenderness), Normal Bowel Sounds, Other (Soft). No: Distention, Peritoneal Signs, Rebound, Guarding, McBurney's Point Tender, Rovsing's Sign Present Back: Present: Normal Inspection Upper Extremity: Present: Normal Inspection. No: Cyanosis, Edema Lower Extremity: Present: Normal Inspection. No: Edema Neurological: Present: GCS=15, CN II-XII Intact, Speech Normal Skin: Present: Warm, Dry, Normal Color. No: Rashes Psychiatric: Present: Alert, Oriented x 3, Normal Insight, Normal Concentration Medical Decision Making ED Course and Treatment: 06/01/17 21:07 PT 's pain was controlled in ED with medication. Her lab was unremarkable Abdominal/Pelvic CT Negative Result was DW the pt. she was DC home with pepcid and Zofran. Advised to follow BLAND diet and referred to her PMD. - Lab Interpretations Lab Results: 06/01/17 10:00 06/01/17 10:00 Lab Results 06/01/17 11:37: Urine Color Yellow, Urine Appearance Clear, Urine pH 8.5, Ur Specific [place] 1.015, Urine Protein 100 H, Urine Glucose (UA) Negative, Urine Ketones Negative, Urine Blood Negative, Urine Nitrate Negative, Urine Bilirubin Negative, Urine Urobilinogen 1.0 H, Ur Leukocyte Esterase Negative, Urine RBC 0 - 2, Urine WBC 1 - 3, Ur Epithelial Cells 10 - 12, Amorphous Sediment Few, Urine Bacteria Many, Urine Other Uyeast 06/01/17 10:00: Sodium 140, Potassium 3.6, Chloride 97 L, Carbon Dioxide 30, Anion Gap 16, BUN 7, Creatinine 0.6 L, Est GFR ( Amer) > 60, Est GFR (Non -Af Amer) > 60, Random Glucose 197 H, Calcium 8.9, Total Bilirubin 1.1, AST 23, ALT 33, Alkaline Phosphatase 60, Total Protein 7.3, Albumin 4.1, Globulin 3.2, Albumin/Globulin Ratio 1.3, Lipase 64 06/01/17 10:00: PT 12.9 H, INR 1.12 H, APTT 27.2 06/01/17 10:00: WBC 10.4, RBC 4.32, Hgb 13.6, Hct 38.4, MCV 88.9, MCH 31.5, MCHC 35.4, RDW 12.9, Plt Count 260, MPV 9.4, Gran % 78.8 H, Lymph % (Auto) 13.3 L, [place] % (Auto) 7.7 H, Eos % (Auto) 0.1 L, Baso % (Auto) 0.1, Gran # 8.19 H, Lymph # (Auto) 1.4, [place] # (Auto) 0.8 H, Eos # (Auto) 0.0, Baso # (Auto) 0.01 06/01/17 09:59: POC Glucose (mg/dL) 222 H - RAD Interpretation Radiology Orders: 06/01/17 10:00 ABD & PELVIS W/O PO OR IV CONT [CT] Stat - Medication Orders Current Medication Orders: Discontinued Medications Dicyclomine HCl (Bentyl) 10 mg PO ONCE STA Stop: 06/01/17 12:20 Last Admin: 06/01/17 12:31 Dose: 10 mg Famotidine (Pepcid) 20 mg IVP STAT STA Stop: 06/01/17 10:01 Last Admin: 06/01/17 11:37 Dose: 20 mg IVP Administration Document 06/01/17 11:37 SE (Rec: 06/01/17 11:37 SE [id number]) Charges for Administration # of IVP Administrations 1 Sodium Chloride (Sodium Chloride 0.9%) 1,000 mls @ 1,000 mls/hr IV .Q1H STA Stop: 06/01/17 10:59 Last Admin: 06/01/17 10:08 Dose: 1,000 mls/hr eMAR Start Stop Document 06/01/17 10:08 SE (Rec: 06/01/17 10:09 SE [id number]) Intravenous Solution Start Date 06/01/17 Start Time 10:09 Ketorolac Tromethamine (Toradol) 30 mg IVP STAT STA Stop: 06/01/17 10:01 Last Admin: 06/01/17 11:37 Dose: 30 mg MAR Pain Assessment Document 06/01/17 11:37 SE (Rec: 06/01/17 11:37 SE [id number]) Pain Reassessment Is this a pain reassessment? No Sleep Is patient sleeping during reassessment? No Presence of Pain Presence of Pain Yes Pain Scale Used Pain Scale Used Numeric IVP Administration Document 06/01/17 11:37 SE (Rec: 06/01/17 11:37 SE [id number]) Charges for Administration # of IVP Administrations 1 Ondansetron HCl (Zofran Inj) 4 mg IVP STAT STA Stop: 06/01/17 10:01 Last Admin: 06/01/17 11:37 Dose: 4 mg IVP Administration Document 06/01/17 11:37 SE (Rec: 06/01/17 11:37 SE [id number]) Charges for Administration # of IVP Administrations 1 Disposition/Present on Arrival - Present on Arrival Any Indicators Present on Arrival: No History of DVT/PE: No History of Uncontrolled Diabetes: No Urinary Catheter: No History of Decub. Ulcer: No History Surgical Site Infection Following: None - Disposition Have Diagnosis and Disposition been Completed?: Yes Diagnosis: Vomiting, RUQ abdominal pain Disposition: HOME/ ROUTINE Disposition Time: 13:20 Patient Plan: Discharge Condition: STABLE Discharge Instructions (ExitCare): Acute Abdomen (Belly Pain), Acute Abdomen ( Belly Pain), Adult (DC), Nausea and Vomiting, Adult Additional Instructions: Follow up with your doctor Return to ED for any new or worsening symptoms Prescriptions: Ondansetron ODT [Zofran ODT] 4 mg PO Q6 #7 odt Sucralfate [Carafate] 1 gm PO BID #20 tab Referrals: Momo Pierce MD [Staff Provider] - Follow up with primary Forms: [employer] (Lithuanian), WORK NOTE
[2017-06-01 10:19] LABS: BASO # 0.01 K/mm3 (0.0-2.0); BASO % 0.1 % (0.0-3.0); EOS % 0.1 % (1.5-5.0); GRAN # 8.19 (1.4-6.5); GRAN % 78.8 % (50.0-68.0); HEMOGLOBIN 13.6 g/dL (12.0-16.0); LYMPH # 1.4 (1.2-3.4); LYMPH % 13.3 % (22.0-35.0); MEAN CELL VOLUME 88.9 fl (80.0-105.0); MEAN CORPUSCULAR HEMOGLOBIN 31.5 pg (25.0-35.0); MEAN CORPUSCULAR HGB CONC 35.4 g/dl (31.0-37.0); MEAN PLATELET VOLUME 9.4 fl (7.0-11.0); MONO # 0.8 (0.1-0.6); MONO % 7.7 % (1.0-6.0); RBC 4.32 10^6/uL (3.5-6.1); RED CELL DISTRIBUTION WIDTH 12.9 % (11.5-14.5); WHITE BLOOD COUNT 10.4 10^3/ul (4.5-11.0)
[2017-06-01 10:24] LABS: INR 1.12 (0.93-1.08); PARTIAL THROMBOPLASTIN TIME 27.2 Seconds (25.1-36.5); PROTHROMBIN TIME 12.9 SECONDS (9.4-12.5)
[2017-06-01 10:29] LABS: ALB/GLOB RATIO 1.3 (1.1-1.8); ALBUMIN 4.1 g/dL (3.0-4.8); ALT/SGPT 33 U/L (7-56); AST/SGOT 23 U/L (14-36); BLOOD UREA NITROGEN 7 mg/dL (7-21); CALCIUM 8.9 mg/dL (8.4-10.5); GFR AFRICAN-AMERICAN > 60; GFR NON-AFRICAN AMERICAN > 60; LIPASE 64 U/L (23-300)
[2017-06-01 11:22] VITALS: RESP 18
[2017-06-01 11:42] LABS: PH,URINE 8.5 (4.7-8.0); URINE BILIRUBIN NEGATIVE (NEGATIVE); URINE BLOOD NEGATIVE (NEGATIVE); URINE GLUCOSE (UA) NEGATIVE (NEGATIVE); URINE LEUKOCYTE ESTERASE NEGATIVE Leu/uL (NEGATIVE); URINE NITRATE NEGATIVE (NEGATIVE); URINE PROTEIN 100 mg/dL (<30 mg/dL)
[2017-06-01 11:48] LABS: URINE APPEARANCE CLEAR (CLEAR); URINE COLOR YELLOW (YELLOW)
[2017-06-01 11:50] LABS: URINE AMORPHOUS SEDIMENT FEW; URINE BACTERIA MANY (NEG); URINE RBC 0 - 2 /hpf (0-2)
--- NOTE | 2017-06-01 12:17 | CT ---
PROCEDURE: CT Abdomen and Pelvis without intravenous contrast HISTORY: Right flank pain COMPARISON: 04/16/2017 CT TECHNIQUE: Technique. Contrast Dose: Without contrast Radiation dose: Total exam DLP = 924 mGy-cm. This CT exam was performed using one or more of the following dose reduction techniques: Automated exposure control, adjustment of the mA and/or kV according to patient size, and/or use of iterative reconstruction technique. FINDINGS: LOWER THORAX: Unremarkable. LIVER: There is hepatomegaly and fatty infiltration of the liver GALLBLADDER AND BILE DUCTS: Removed PANCREAS: Unremarkable. No gross lesion or ductal dilatation. SPLEEN: Unremarkable. ADRENALS: Unremarkable. No mass. KIDNEYS AND URETERS: There is a 2 mm nonobstructing stone in the right kidney. There are no ureteral stones and no evidence of hydronephrosis VASCULATURE: Unremarkable. No aortic aneurysm. BOWEL: Unremarkable. No obstruction. No gross mural thickening. APPENDIX: Unremarkable. Normal appendix. PERITONEUM: Unremarkable. No free fluid. No free air. LYMPH NODES: Unremarkable. No enlarged lymph nodes. BLADDER: Unremarkable. REPRODUCTIVE: Bilateral ovarian cysts. BONES: No acute fracture. OTHER FINDINGS: None. IMPRESSION: No acute findings. No evidence of ureteral stone or hydronephrosis Fatty infiltration of the liver with hepatomegaly
[2017-06-01 13:19] VITALS: BP 138/74; PULSE 85
== END 2017-06-01 13:32 | disposition home or self-care (01) ==
LOC: ED 09:39
DX: R11.10 Vomiting, unspecified (principal); R10.11 Right upper quadrant pain; E10.9 Type 1 diabetes mellitus without complications; Z79.4 Long term (current) use of insulin
CPT/HCPCS: 74176; 80053; 81001; 82948; 83690; 85025; 85610; 85730; 96374; 96375; 99285; J1885; J2405; J7040

== ENCOUNTER 2017-06-27 00:57 | Emergency (ER) | payer MEDICAID, OTHER ==
[2017-06-27 00:58] VITALS: BMI 28.3
[2017-06-27] MEDS ORDERED: Sodium Chloride 0.9% 1,000 ML IV STA (02:33)
--- NOTE | 2017-06-27 02:33 | ED PDOC ---
Arrival/HPI - General Chief Complaint: GI Problem Time Seen by Provider: 06/27/17 01:39 Historian: Patient - History of Present Illness Narrative History of Present Illness (Text): 06/27/17 02:32 Mercy Morrissey is a 21 year old female, whose past medical history includes asthma, diabetes, and alcohol abuse, who presents to the Emergency department complaining of nausea with multiple episodes of vomiting since yesterday. Patient states she was seen yesterday morning for similar complaints and discharged home, but states symptoms worsened tonight. Patient denies any fever, chills, diarrhea, urinary symptoms, back pain, neck pain, headache, dizziness, or any other complaints. Symptom Onset: Gradual Symptom Course: Unchanged Activities at Onset: Light Context: Home Past Medical History - Provider Review Nursing Documentation Reviewed: Yes - Infectious Disease Hx of Infectious Diseases: None - Tetanus Immunization Tetanus Immunization: Unknown - Cardiac Hx Atrial Fibrillation: No Hx Cardiac Arrhythmia: No Hx Congestive Heart Failure: No Hx Hypertension: No - Pulmonary Hx Asthma: Yes - Neurological Hx Seizures: No - HEENT Hx HEENT Disorder: No - Renal Hx Renal Disorder: Yes Hx Kidney Stones: Yes - Endocrine/Metabolic Hx Endocrine Disorders: Yes Hx Diabetes Mellitus Type 1: Yes - Hematological/Oncological Hx Cancer: No - Integumentary Hx Dermatological Disorder: No - Musculoskeletal/Rheumatological Hx Musculoskeletal Disorders: No - Gastrointestinal Hx Gall Bladder Disease: Yes (CHOLECYSTECTOMY) - Genitourinary/Gynecological Hx Sexually Transmitted Diseases: No - Psychiatric Hx Psychophysiologic Disorder: No Hx Substance Use: Yes (THC) - Past Surgical History Past Surgical History: No Previous - Surgical History Hx Cholecystectomy: Yes - Anesthesia Hx Anesthesia: Yes Hx Anesthesia Reactions: No Hx Malignant Hyperthermia: No - Suicidal Assessment Feels Threatened In Home Enviroment: No Family/Social History - Physician Review Nursing Documentation Reviewed: Yes Family/Social History: Unknown Family HX Smoking Status: Light Smoker < 10 Cigarettes Daily Hx Alcohol Use: Yes Hx Substance Use: Yes (THC) Hx Substance Use Treatment: No Allergies/Home Meds Allergies/Adverse Reactions: Allergies shellfish derived Allergy (Verified 06/01/17 09:43) SWELLING Review of Systems - Physician Review All systems were reviewed & negative as marked: Yes - Review of Systems Constitutional: Normal. absent: Fevers Eyes: Normal ENT: Normal Respiratory: Normal. absent: SOB, Cough Cardiovascular: Normal. absent: Chest Pain Gastrointestinal: Nausea, Vomiting. absent: Diarrhea Genitourinary Female: Normal. absent: Dysuria, Frequency, Hematuria, Urine Output Changes Musculoskeletal: Normal. absent: Back Pain, Neck Pain Skin: Normal. absent: Rash Neurological: Normal. absent: Headache, Dizziness Endocrine: Normal Hemo/Lymphatic: Normal Psychiatric: Normal Physical Exam Vital Signs Reviewed: Yes Vital Signs Temp Pulse Resp BP Pulse Ox 06/27/17 01:15 210.2 F H 88 18 136/74 99 Temperature: Afebrile Blood Pressure: Normal Pulse: Regular Respiratory Rate: Normal Appearance: Positive for: Well-Appearing, Non-Toxic, Comfortable Pain Distress: None Mental Status: Positive for: Alert and Oriented X 3 - Systems Exam Head: Present: Atraumatic, Normocephalic Pupils: Present: PERRL Extroacular Muscles: Present: EOMI Conjunctiva: Present: Normal Mouth: Present: Moist Mucous Membranes Neck: Present: Normal Range of Motion. No: Meningeal Signs, MIDLINE TENDERNESS , Paraspinal Tenderness Respiratory/Chest: Present: Clear to Auscultation, Good Air Exchange. No: Respiratory Distress, Accessory Muscle Use Cardiovascular: Present: Regular Rate and Rhythm, Normal S1, S2. No: Murmurs Abdomen: Present: Normal Bowel Sounds. No: Tenderness, Distention, Peritoneal Signs Back: Present: Normal Inspection. No: CVA Tenderness, Midline Tenderness, Paraspinal Tenderness Upper Extremity: Present: Normal Inspection. No: Cyanosis, Edema Lower Extremity: Present: Normal Inspection. No: Edema Neurological: Present: GCS=15, CN II-XII Intact, Speech Normal Skin: Present: Warm, Dry, Normal Color. No: Rashes Psychiatric: Present: Alert, Oriented x 3, Normal Insight, Normal Concentration Medical Decision Making ED Course and Treatment: 06/27/17 02:32 Impression: 21 year old female complaining of nausea and vomiting. Differential Diagnosis included but are not limited to: Plan: -- Labs, lipase -- Urinalysis -- IV fluids -- Zofran -- Pepcid -- Toradol -- Reassess and disposition Prior Visits: Notes and results from previous visits were reviewed. On 06/26/2017, pt was seen in the Emergency department for nausea, vomiting, and right flank pain. CT Abdomen and Pelvis performed shows: Few punctate calcifications both kidneys however no evidence of hydronephrosis. Incomplete distention of the urinary bladder which presumably accounts for thick-walled appearance however the possibility of a cystitis not excluded therefore clinical correlation with urinalysis recommended. Hepatosplenomegaly. Pt was d/ c home. Progress Notes: - Lab Interpretations Lab Results: 06/27/17 02:51 06/27/17 02:51 Lab Results 06/27/17 02:51: WBC 9.9, RBC 4.10, Hgb 13.3, Hct 37.1, MCV 90.5, MCH 32.4, MCHC 35.8, RDW 13.2, Plt Count 319, MPV 9.7 06/27/17 02:51: Sodium 142, Potassium 3.1 L, Chloride 98, Carbon Dioxide 34 H, Anion Gap 13, BUN 13, Creatinine 0.7, Est GFR ( Amer) > 60, Est GFR (Non- Af Amer) > 60, Random Glucose 294 H, Calcium 9.3, Total Bilirubin 1.3, AST 29, ALT 42, Alkaline Phosphatase 60, Total Protein 7.8, Albumin 4.3, Globulin 3.5, Albumin/Globulin Ratio 1.2, Lipase 96 06/27/17 02:51: Urine Color Yellow, Urine Appearance Sl cloudy, Urine pH 7.5, Ur Specific [place] 1.020, Urine Protein 100 H, Urine Glucose (UA) 250 H, Urine Ketones 15 H, Urine Blood Negative, Urine Nitrate Negative, Urine Bilirubin Negative, Urine Urobilinogen 2.0 H, Ur Leukocyte Esterase Negative, Urine RBC 1 - 3, Urine WBC 2 - 5, Ur Epithelial Cells 4 - 5, Urine Bacteria Few - Medication Orders Current Medication Orders: Discontinued Medications Famotidine (Pepcid) 20 mg IVP STAT STA Stop: 06/27/17 02:34 Last Admin: 06/27/17 02:53 Dose: 20 mg IVP Administration Document 06/27/17 02:53 KILEY (Rec: 06/27/17 02:53 KILEY [id number]) Charges for Administration # of IVP Administrations 1 Sodium Chloride (Sodium Chloride 0.9%) 1,000 mls @ 999 mls/hr IV .Q1H1M STA Stop: 06/27/17 03:33 Last Admin: 06/27/17 02:54 Dose: 999 mls/hr eMAR Start Stop Document 03/25/18 02:54 KILEY (Rec: 06/27/17 02:55 KILEY [id number]) Intravenous Solution Start Date 06/27/17 Start Time 02:54 End Date 06/27/17 End time 03:54 Total Infusion Time 60 Ketorolac Tromethamine (Toradol) 30 mg IVP ONCE ONE Stop: 06/27/17 02:34 Last Admin: 06/27/17 03:00 Dose: 30 mg MAR Pain Assessment Document 06/27/17 03:00 KILEY (Rec: 06/27/17 03:00 KILEY [id number]) Pain Reassessment Is this a pain reassessment? No IVP Administration Document 06/27/17 03:00 KILEY (Rec: 06/27/17 03:00 KILEY [id number]) Charges for Administration # of IVP Administrations 1 Ondansetron HCl (Zofran Inj) 4 mg IVP ONCE ONE Stop: 06/27/17 02:34 Last Admin: 06/27/17 02:53 Dose: 4 mg IVP Administration Document 06/27/17 02:53 KILEY (Rec: 06/27/17 02:54 KILEY [id number]) Charges for Administration # of IVP Administrations 1 Ondansetron HCl (Zofran Inj) 4 mg IVP ONCE ONE Stop: 06/27/17 05:29 Last Admin: 06/27/17 05:38 Dose: 4 mg IVP Administration Document 06/27/17 05:38 JMR (Rec: 06/27/17 05:38 JMR [id number]) Charges for Administration # of IVP Administrations 1 Potassium Chloride (K-Dur 20 Meq Er Tab) 40 meq PO STAT STA Stop: 06/27/17 04:41 Last Admin: 06/27/17 06:08 Dose: 40 meq - Scribe Statement The provider has reviewed the documentation as recorded by the Renita Garcias Provider Scribe Attestation: All medical record entries made by the Jluisibpedro were at my direction and personally dictated by me. I have reviewed the chart and agree that the record accurately reflects my personal performance of the history, physical exam, medical decision making, and the department course for this patient. I have also personally directed, reviewed, and agree with the discharge instructions and disposition. Disposition/Present on Arrival - Present on Arrival Any Indicators Present on Arrival: No History of DVT/PE: No History of Uncontrolled Diabetes: No Urinary Catheter: No History of Decub. Ulcer: No History Surgical Site Infection Following: None - Disposition Have Diagnosis and Disposition been Completed?: Yes Diagnosis: Nausea & vomiting, Hyperglycemia due to type 1 diabetes mellitus Disposition: HOME/ ROUTINE Disposition Time: 06:39 Patient Plan: Discharge Patient Problems: Current Active Problems Problem Status Onset Nausea & vomiting Acute Condition: STABLE Discharge Instructions (ExitCare): Nausea and Vomiting, Adult (DC) Additional Instructions: Continue your prescribed medications/advance diet slowly as tolerated/follow up with your doctor this week Forms: [employer] (Yoruba)
[2017-06-27 03:12] LABS: HEMOGLOBIN 13.3 g/dL (12.0-16.0); MEAN CELL VOLUME 90.5 fl (80.0-105.0); MEAN CORPUSCULAR HEMOGLOBIN 32.4 pg (25.0-35.0); MEAN CORPUSCULAR HGB CONC 35.8 g/dl (31.0-37.0); MEAN PLATELET VOLUME 9.7 fl (7.0-11.0); RBC 4.1 10^6/uL (3.5-6.1); RED CELL DISTRIBUTION WIDTH 13.2 % (11.5-14.5); WHITE BLOOD COUNT 9.9 10^3/ul (4.5-11.0)
[2017-06-27 03:33] LABS: PH,URINE 7.5 (4.7-8.0); URINE BILIRUBIN NEGATIVE (NEGATIVE); URINE BLOOD NEGATIVE (NEGATIVE); URINE GLUCOSE (UA) 250 mg/dL (NEGATIVE); URINE LEUKOCYTE ESTERASE NEGATIVE Leu/uL (NEGATIVE); URINE PROTEIN 100 mg/dL (<30 mg/dL)
[2017-06-27 03:35] LABS: URINE APPEARANCE SL CLOUDY (CLEAR); URINE COLOR YELLOW (YELLOW)
[2017-06-27 03:51] LABS: URINE BACTERIA FEW (NEG)
[2017-06-27 04:28] LABS: ALB/GLOB RATIO 1.2 (1.1-1.8); ALBUMIN 4.3 g/dL (3.0-4.8); ALT/SGPT 42 U/L (7-56); AST/SGOT 29 U/L (14-36); BLOOD UREA NITROGEN 13 mg/dL (7-21); CALCIUM 9.3 mg/dL (8.4-10.5); GFR AFRICAN-AMERICAN > 60; GFR NON-AFRICAN AMERICAN > 60; LIPASE 96 U/L (23-300)
[2017-06-27] MEDS ORDERED: Potassium Chloride 20 mEq ER Tab PO STA (04:40)
[2017-06-27 06:37] VITALS: RESP 18; TEMP 210.2
[2017-06-27 06:47] VITALS: BP 124/76; PULSE 84; O2SAT 100
== END 2017-06-27 06:48 | disposition home or self-care (01) ==
LOC: ED 00:57
DX: E10.65 Type 1 diabetes mellitus with hyperglycemia (principal); R11.2 Nausea with vomiting, unspecified
CPT/HCPCS: 80053; 81001; 82948; 83690; 85027; 96361; 96374; 96375; 96376; 99283; J1885; J2405; J7040

== ENCOUNTER 2017-06-27 19:59 | Inpatient (IN) | payer OTHER ==
[2017-06-27 20:00] VITALS: BMI 28.3
--- NOTE | 2017-06-27 20:11 | ED PDOC ---
Arrival/HPI - General Historian: Patient <Juan Mallory - Last Filed: 06/27/17 22:18> <Vincent Miller - Last Filed: 06/27/17 22:24> - General Time Seen by Provider: 06/27/17 20:04 - History of Present Illness Narrative History of Present Illness (Text): 06/27/17 20:06 21 y/o female, pmh including DKA/type I DM with insulin dependent, nkda, c/o abdominal pain/nausea/vomiting x 3 days. Pt. stated that she has epigastric pain, on and off for the past 3 days. Pt. stated that she has epigastric abdominal pain on and off with multiple episodes of vomiting, no urinary symptoms, no rash, no night sweat, no dizziness, no change in vision, had CT abdomen and pelvis yesterday with no obstructive calculus noted, no hematuria, no urinary symptoms, no other medical or psychological complaints. (Juan Mallory) Past Medical History - Provider Review Nursing Documentation Reviewed: Yes - Infectious Disease Hx of Infectious Diseases: None - Tetanus Immunization Tetanus Immunization: Unknown - Cardiac Hx Atrial Fibrillation: No Hx Cardiac Arrhythmia: No Hx Congestive Heart Failure: No Hx Hypertension: No - Pulmonary Hx Asthma: Yes - Neurological Hx Seizures: No - HEENT Hx HEENT Disorder: No - Renal Hx Renal Disorder: Yes Hx Kidney Stones: Yes - Endocrine/Metabolic Hx Endocrine Disorders: Yes Hx Diabetes Mellitus Type 1: Yes - Hematological/Oncological Hx Cancer: No - Integumentary Hx Dermatological Disorder: No - Musculoskeletal/Rheumatological Hx Musculoskeletal Disorders: No - Gastrointestinal Hx Gall Bladder Disease: Yes (CHOLECYSTECTOMY) - Genitourinary/Gynecological Hx Sexually Transmitted Diseases: No - Psychiatric Hx Psychophysiologic Disorder: No Hx Substance Use: Yes (THC) - Past Surgical History Past Surgical History: No Previous - Surgical History Hx Cholecystectomy: Yes - Anesthesia Hx Anesthesia: Yes Hx Anesthesia Reactions: No Hx Malignant Hyperthermia: No - Suicidal Assessment Feels Threatened In Home Enviroment: No <Juan Mallory - Last Filed: 06/27/17 22:18> Family/Social History - Physician Review Nursing Documentation Reviewed: Yes Family/Social History: Unknown Family HX Smoking Status: Light Smoker < 10 Cigarettes Daily Hx Alcohol Use: Yes Hx Substance Use: Yes (THC) Hx Substance Use Treatment: No <Juan Mallory - Last Filed: 06/27/17 22:18> Allergies/Home Meds <Juan Mallory - Last Filed: 06/27/17 22:18> <Vincent Miller - Last Filed: 06/27/17 22:24> Allergies/Adverse Reactions: Allergies shellfish derived Allergy (Verified 06/01/17 09:43) SWELLING Review of Systems - Review of Systems Constitutional: absent: Fatigue, Fevers Eyes: absent: Vision Changes ENT: absent: Hearing Changes Respiratory: absent: SOB, Cough Cardiovascular: absent: Chest Pain Gastrointestinal: Abdominal Pain, Nausea, Vomiting. absent: Diarrhea Skin: absent: Rash, Pruritis Neurological: absent: Headache, Dizziness Psychiatric: absent: Anxiety, Depression <Juan Mallory - Last Filed: 06/27/17 22:18> Physical Exam Vital Signs Reviewed: Yes Temperature: Afebrile Blood Pressure: Hypertensive Pulse: Regular Respiratory Rate: Normal Appearance: Positive for: Well-Appearing, Non-Toxic, Comfortable Pain Distress: Mild Mental Status: Positive for: Alert and Oriented X 3 - Systems Exam Head: Present: Atraumatic, Normocephalic Pupils: Present: PERRL Extroacular Muscles: Present: EOMI Conjunctiva: Present: Normal Mouth: Present: Moist Mucous Membranes Neck: Present: Normal Range of Motion Respiratory/Chest: Present: Clear to Auscultation, Good Air Exchange. No: Respiratory Distress, Accessory Muscle Use Cardiovascular: Present: Regular Rate and Rhythm, Normal S1, S2. No: Murmurs Abdomen: Present: Tenderness (epigastric tenderness), Normal Bowel Sounds. No: Distention, Peritoneal Signs, Rebound, Guarding Back: Present: Normal Inspection Upper Extremity: Present: Normal Inspection. No: Cyanosis, Edema Lower Extremity: Present: Normal Inspection. No: Edema Neurological: Present: GCS=15, CN II-XII Intact, Speech Normal Skin: Present: Warm, Dry, Normal Color. No: Rashes Psychiatric: Present: Alert, Oriented x 3, Normal Insight, Normal Concentration <Juan Mallory - Last Filed: 06/27/17 22:18> Vital Signs Temp Pulse Resp BP Pulse Ox 06/27/17 20:08 98.4 F 99 H 16 147/95 H 100 Medical Decision Making <Juan Mallory - Last Filed: 06/27/17 22:18> <Vincent Miller - Last Filed: 06/27/17 22:24> ED Course and Treatment: 06/27/17 20:18 -labs/ua/abg -IVF/pepcid/reglan/toradol -Abdominal xray -EKG -Observe and reassess 06/27/17 22:18 -Urine hcg is negative -EKG: NSR @ 92 BPM, no ST elevation or depression, no T wave inversion. -Abdominal xray show no obstruction -Labs show no acute findings except potassium 3.4 (potassium chloride 20meq ordered) -UA show no UTI -UDS show +canabinnoid. -ABG show no DKA -Pt. still vomiting/nausea, likely gastroparesis?, unable to tolerated PO, will admit the patient over night -Hospitalist paged. 06/27/17 22:22 -I spoke to the biomedical engineering aide DR. Andrade and Dr. Abbott about the case, discussed about the case/labs/radiology result, agreed to admit the patient. -I discussed with Dr. Miller about the case/labs/radiologist . (Juan Mallory) - Lab Interpretations Lab Results: 06/27/17 20:50 06/27/17 20:50 Lab Results 06/27/17 20:55: pCO2 42, pO2 89.0, HCO3 29.9 H, ABG pH 7.46 H, ABG Total CO2 31.2 H, ABG O2 Saturation 98.9 H, ABG Base Excess 5.4 H, ABG Potassium 3.1 L, Glucose 230 H, Lactate 1.1, FiO2 21.0, Sodium 138.0, Chloride 104.0, Arterial Blood Potassium 3.1 L 06/27/17 20:50: WBC 9.0, RBC 4.08, Hgb 13.2, Hct 36.4, MCV 89.2, MCH 32.4, MCHC 36.3, RDW 13.0, Plt Count 303, MPV 9.5, Gran % 74.7 H, Lymph % (Auto) 17.0 L, [place] % (Auto) 7.9 H, Eos % (Auto) 0.2 L, Baso % (Auto) 0.2, Gran # 6.71 H, Lymph # (Auto) 1.5, [place] # (Auto) 0.7 H, Eos # (Auto) 0.0, Baso # (Auto) 0.02 06/27/17 20:50: Sodium 141, Potassium 3.4 L, Chloride 101, Carbon Dioxide 30, Anion Gap 13, BUN 9, Creatinine 0.8, Est GFR ( Amer) > 60, Est GFR (Non- Af Amer) > 60, Random Glucose 242 H, Calcium 9.4, Magnesium 2.0, Total Bilirubin 1.2, AST 57 H D, ALT 52, Alkaline Phosphatase 51, Total Protein 7.5, Albumin 4.1, Globulin 3.4, Albumin/Globulin Ratio 1.2, Lipase 107 06/27/17 20:38: Urine Opiates Screen Negative, Urine Methadone Screen Negative, Ur Barbiturates Screen Negative, Ur Phencyclidine Scrn Negative, Ur Amphetamines Screen Negative, U Benzodiazepines Scrn Negative, U Oth Cocaine Metabols Negative, U Cannabinoids Screen Positive H 06/27/17 20:38: Urine Color Light yellow, Urine Appearance Clear, Urine pH 7.5, Ur Specific [place] 1.020, Urine Protein 100 H, Urine Glucose (UA) Negative, Urine Ketones Negative, Urine Blood Trace-intact H, Urine Nitrate Negative, Urine Bilirubin Negative, Urine Urobilinogen 4.0 H, Ur Leukocyte Esterase Negative, Urine RBC 5 - 10, Urine WBC 2 - 5, Ur Epithelial Cells Many, Urine Bacteria Mod 06/27/17 20:17: POC Glucose (mg/dL) 206 H - RAD Interpretation Radiology Orders: 06/27/17 20:13 ABD 2 VIEWS (FLAT/UP OR DECUB) [RAD] Stat - Medication Orders Current Medication Orders: Discontinued Medications Famotidine (Pepcid) 20 mg IVP STAT STA Stop: 06/27/17 20:14 Last Admin: 06/27/17 20:40 Dose: 20 mg IVP Administration Document 06/27/17 20:40 JOL (Rec: 06/27/17 21:07 JOL [id number]) Charges for Administration # of IVP Administrations 1 Sodium Chloride (Sodium Chloride 0.9%) 1,000 mls @ 999 mls/hr IV .Q1H1M STA Stop: 06/27/17 21:13 Last Admin: 06/27/17 20:40 Dose: 999 mls/hr eMAR Start Stop Document 06/27/17 20:40 JOL (Rec: 06/27/17 21:07 [id number] Intravenous Solution Start Date 06/27/17 Start Time 20:40 End Date 06/27/17 End time 21:41 Total Infusion Time 61 Ketorolac Tromethamine (Toradol) 30 mg IVP STAT STA Stop: 06/27/17 22:19 Metoclopramide HCl (Reglan) 10 mg IVP STAT STA Stop: 06/27/17 20:14 Last Admin: 06/27/17 20:40 Dose: 10 mg IVP Administration Document 06/27/17 20:40 JOL (Rec: 06/27/17 21:07 [id number] Charges for Administration # of IVP Administrations 1 Potassium Chloride (K-Dur 20 Meq Er Tab) 20 meq PO STAT STA Stop: 06/27/17 21:43 - PA / PUBLIC IMPROVEMENT INSPECTOR / Resident Statement HENRIK has reviewed & agrees with the documentation as recorded. <Juan Mallory - Last Filed: 06/27/17 22:18> - PA / PUBLIC IMPROVEMENT INSPECTOR / Resident Statement HENRIK has reviewed & agrees with the documentation as recorded. HENRIK has examined the patient and agrees with the treatment plan. <Vincent Miller - Last Filed: 06/27/17 22:24> Disposition/Present on Arrival - Present on Arrival Any Indicators Present on Arrival: No History of DVT/PE: No History of Uncontrolled Diabetes: No Urinary Catheter: No History of Decub. Ulcer: No History Surgical Site Infection Following: None - Disposition Have Diagnosis and Disposition been Completed?: Yes Disposition Time: 22:20 Patient Plan: Admission, Observation <Juan Mallory - Last Filed: 06/27/17 22:18> <Vincent Miller - Last Filed: 06/27/17 22:24> - Disposition Diagnosis: Type 1 diabetes, Gastroparesis Disposition: HOSPITALIZED Patient Problems: Current Active Problems Problem Status Onset Gastroparesis Acute Type 1 diabetes Acute Condition: STABLE Referrals: Momo Pierce MD [Primary Care Provider] - Follow up with primary
[2017-06-27] MEDS ORDERED: Sodium Chloride 0.9% 1,000 ML IV STA (20:13)
[2017-06-27 20:43] LABS: PH,URINE 7.5 (4.7-8.0); URINE BILIRUBIN NEGATIVE (NEGATIVE); URINE BLOOD TRACE-INTACT (NEGATIVE); URINE GLUCOSE (UA) NEGATIVE (NEGATIVE); URINE LEUKOCYTE ESTERASE NEGATIVE Leu/uL (NEGATIVE); URINE PROTEIN 100 mg/dL (<30 mg/dL)
[2017-06-27 20:48] LABS: URINE APPEARANCE CLEAR (CLEAR); URINE COLOR LIGHT YELLOW (YELLOW)
[2017-06-27 20:59] LABS: ARTERIAL BLOOD GAS HCO3 29.9 mmol/L (21-28); ARTERIAL BLOOD GAS O2 SAT 98.9 % (95-98); ARTERIAL BLOOD GAS PCO2 42 mm/Hg (35-45); ARTERIAL BLOOD GAS PH 7.46 (7.35-7.45); ARTERIAL BLOOD GAS TCO2 31.2 mmol.L (22-28)
[2017-06-27 21:09] LABS: BASO # 0.02 K/mm3 (0.0-2.0); BASO % 0.2 % (0.0-3.0); EOS % 0.2 % (1.5-5.0); GRAN # 6.71 (1.4-6.5); GRAN % 74.7 % (50.0-68.0); HEMOGLOBIN 13.2 g/dL (12.0-16.0); LYMPH # 1.5 (1.2-3.4); MEAN CELL VOLUME 89.2 fl (80.0-105.0); MEAN CORPUSCULAR HEMOGLOBIN 32.4 pg (25.0-35.0); MEAN CORPUSCULAR HGB CONC 36.3 g/dl (31.0-37.0); MEAN PLATELET VOLUME 9.5 fl (7.0-11.0); MONO # 0.7 (0.1-0.6); MONO % 7.9 % (1.0-6.0); RBC 4.08 10^6/uL (3.5-6.1)
[2017-06-27 21:14] LABS: URINE BACTERIA MOD (NEG); URINE EPITHELIAL CELLS MANY /hpf (0-5)
[2017-06-27 21:35] LABS: ALB/GLOB RATIO 1.2 (1.1-1.8); ALBUMIN 4.1 g/dL (3.0-4.8); ALT/SGPT 52 U/L (7-56); AST/SGOT 57 U/L (14-36); BLOOD UREA NITROGEN 9 mg/dL (7-21); CALCIUM 9.4 mg/dL (8.4-10.5); GFR AFRICAN-AMERICAN > 60; GFR NON-AFRICAN AMERICAN > 60; LIPASE 107 U/L (23-300)
[2017-06-27 21:35] LABS: BARBITURATES, UR NEGATIVE (NEGATIVE); BENZODIAZEPINES, UR NEGATIVE (NEGATIVE); OPIATES, UR NEGATIVE (NEGATIVE); PHENCYCLIDINE, UR NEGATIVE (NEGATIVE)
[2017-06-27] MEDS ORDERED: Potassium Chloride 20 mEq ER Tab PO STA (21:42)
--- NOTE | 2017-06-27 23:11 | CP.PCM.HP ---
History of Present Illness - History of Present Illness History of Present Illness: PGY-2 h&P for hospitalist service 21 yo female with pmh including type I DM with insulin dependent and asthma presented with abdominal pain, nausea and vomiting for 3 days. Patient stated that she has epigastric pain, on and off for the past 3 days. She states that she has had multiple episodes of vomiting, non bloody and has not been able to eat anything. She states that for the past few days her sugars have been uncontrolled. She reports previous episode with similar symptoms but does not recall when its occurred or what was the cause. She states that so took zofran for the n/v however it did not help. She denies urinary symptoms, rash, night sweat, dizziness, change in vision. Patient was in the ED yesterday and had CT abdomen and pelvis yesterday with no obstructive calculus noted, no hematuria, no urinary symptoms, no other medical or psychological complaints PMH: type 1 DM, asthma PSH: CHOLECYSTECTOMY social history: light smoking, social alcohol use, last drink about 2 weeks ago , smokes [facility] allergy: shellfish home med: novolog 10 units ac, lantus 7 units HS Present on Admission - Present on Admission Any Indicators Present on Admission: Yes History of Uncontrolled Diabetes: Yes Review of Systems - Review of Systems All systems: reviewed and no additional remarkable complaints except Past Patient History - Infectious Disease Hx of Infectious Diseases: None - Tetanus Immunizations Tetanus Immunization: Unknown - Past Medical History & Family History Past Medical History?: Yes - Past Social History Smoking Status: Light Smoker < 10 Cigarettes Daily - CARDIAC Hx Atrial Fibrillation: No Hx Cardia Arrhythmia: No Hx Congestive Heart Failure: No Hx Hypertension: No - PULMONARY Hx Asthma: Yes - NEUROLOGICAL Hx Seizures: No - HEENT Hx HEENT Problems: No - RENAL Hx Chronic Kidney Disease: Yes Hx Kidney Stones: Yes - ENDOCRINE/METABOLIC Hx Endocrine Disorders: Yes Hx Diabetes Mellitus Type 1: Yes - HEMATOLOGICAL/ONCOLOGICAL Hx Cancer: No - INTEGUMENTARY Hx Dermatological Problems: No - MUSCULOSKELETAL/RHEUMATOLOGICAL Hx Musculoskeletal Disorders: No - GASTROINTESTINAL Hx Gall Bladder Disease: Yes (CHOLECYSTECTOMY) - GENITOURINARY/GYNECOLOGICAL Hx Sexually Transmitted Disorders: No - PSYCHIATRIC Hx Psychophysiologic Disorder: No Hx Substance Use: Yes (THC) - SURGICAL HISTORY Hx Cholecystectomy: Yes - ANESTHESIA Hx Anesthesia: Yes Hx Anesthesia Reactions: No Hx Malignant Hyperthermia: No Meds Allergies/Adverse Reactions: Allergies Allergy/AdvReac Type Severity Reaction Status Date / Time shellfish derived Allergy SWELLING Verified 06/01/17 09:43 Physical Exam - Constitutional Appears: No Acute Distress - Head Exam Head Exam: ATRAUMATIC, NORMAL INSPECTION, NORMOCEPHALIC - Eye Exam Eye Exam: EOMI, Normal appearance - ENT Exam ENT Exam: Mucous Membranes Moist - Respiratory Exam Respiratory Exam: Clear to Auscultation Bilateral, NORMAL BREATHING PATTERN. absent: Rhonchi, Wheezes, Respiratory Distress - Cardiovascular Exam Cardiovascular Exam: REGULAR RHYTHM, +S1, +S2. absent: Diastolic murmur, Systolic Murmur - GI/Abdominal Exam GI & Abdominal Exam: Normal Bowel Sounds, Soft. absent: Distended, Firm, Guarding, Tenderness Results - Vital Signs Recent Vital Signs: Last Vital Signs Temp 98.4 F 06/27/17 20:08 Pulse 99 H 06/27/17 20:08 Resp 16 06/27/17 20:08 BP 147/95 H 06/27/17 20:08 Pulse Ox 100 06/27/17 20:08 - Labs Result Diagrams: 06/27/17 20:50 06/27/17 20:50 Assessment & Plan - Assessment and Plan (Free Text) Assessment: 21 yo female with pmh including type I DM with insulin dependent and asthma presented with abdominal pain, nausea and vomiting most likely due to diabetic gastroporesis. Plan: 1. abd pain, nausea and vomiting - CT abd/pel for previous visit showed No acute findings. No evidence of ureteral stone or hydronephrosis, Fatty infiltration of the liver with hepatomegaly - reglan q8h - zofran prn - morphine for pain - abd xray pending official read - NPO - IVF NS @100 2. type 1 diabetes - ISSS - accucheck achs - Hgba1c ppx - GI- protonix - DVT- lovenox
[2017-06-27] MEDS ORDERED: Sodium Chloride 0.9% 1,000 ML IV SCH (23:30)
[2017-06-27] MEDS ORDERED: Morphine 2 mg/ml ISec IVP PRN (23:43)
[2017-06-28] MEDS ORDERED: Pantoprazole 40 mg EC Tab PO SCH (06:00)
[2017-06-28 07:23] LABS: BASO # 0.02 K/mm3 (0.0-2.0); BASO % 0.2 % (0.0-3.0); EOS % 0.1 % (1.5-5.0); GRAN # 5.64 (1.4-6.5); GRAN % 68.1 % (50.0-68.0); HEMOGLOBIN 11.7 g/dL (12.0-16.0); LYMPH % 24.5 % (22.0-35.0); MEAN CELL VOLUME 89.3 fl (80.0-105.0); MEAN CORPUSCULAR HEMOGLOBIN 31.3 pg (25.0-35.0); MEAN PLATELET VOLUME 9.5 fl (7.0-11.0); MONO # 0.6 (0.1-0.6); MONO % 7.1 % (1.0-6.0); RBC 3.74 10^6/uL (3.5-6.1); RED CELL DISTRIBUTION WIDTH 13.2 % (11.5-14.5); WHITE BLOOD COUNT 8.3 10^3/ul (4.5-11.0)
[2017-06-28] MEDS ORDERED: Insulin Reg-MEDIUM-Coverage SC SCH ×3 (07:30→16:30)
[2017-06-28 07:33] VITALS: BP 130/81; PULSE 73; RESP 16; TEMP 98.5; O2SAT 99
[2017-06-28 07:37] LABS: ALB/GLOB RATIO 1.2 (1.1-1.8); ALBUMIN 3.5 g/dL (3.0-4.8); ALT/SGPT 46 U/L (7-56); AST/SGOT 35 U/L (14-36); BLOOD UREA NITROGEN 11 mg/dL (7-21); CALCIUM 8.7 mg/dL (8.4-10.5); GFR AFRICAN-AMERICAN > 60; GFR NON-AFRICAN AMERICAN > 60
[2017-06-28] MEDS: Morphine 4 mg/ml ISec IV PRN ×2 (07:50→12:01)
--- NOTE | 2017-06-28 08:14 | RAD ---
HISTORY: abdominal pain and vomiting COMPARISON: No prior. FINDINGS: BOWEL: Normal. No obstruction. No free air. BONES: Normal. OTHER FINDINGS: None. IMPRESSION: No active disease.
[2017-06-28] MEDS ORDERED: Potassium Chloride 20 mEq ER Tab PO STA (08:43)
[2017-06-28] MEDS ORDERED: Enoxaparin 40 mg Syringe SC SCH (10:00)
--- NOTE | 2017-06-28 10:05 | CARD ---
APPROVED REPORT EKG Measurement Heart [id number] [place] [id number] <Conclusion> Normal sinus rhythm
--- NOTE | 2017-06-28 13:23 | CP.PCM.PN ---
<CliffordAlfredo - Last Filed: 06/28/17 13:09> Subjective - Date & Time of Evaluation Date of Evaluation: 06/28/17 Time of Evaluation: 07:40 - Subjective Subjective: Medicine progress note: Dr. Sudarshan Villanueva Patient seen and examined at bedside. No acute events overnight. Patient denies any bouts of vomiting since being in the hospital. Patient states that she self-medicates with marijuana when she is nauseas, she was advised against use of marijuana. Patient denies any other symptoms including blood in the vomitus. Objective - Vital Signs/Intake and Output Vital Signs (last 24 hours): Temp Pulse Resp BP Pulse Ox 98.5 F 73 16 130/81 99 06/28/17 07:32 06/28/17 07:32 06/28/17 07:32 06/28/17 07:32 06/28/17 07:32 - Medications Medications: Current Medications Acetaminophen (Tylenol 325mg Tab) 650 mg PO Q4H PRN PRN Reason: Pain, Mild (1-3) Enoxaparin Sodium (Lovenox) 40 mg SC DAILY [facility] PRN Reason: Protocol Last Admin: 06/28/17 09:19 Dose: 40 mg Sodium Chloride (Sodium Chloride 0.9%) 1,000 mls @ 100 mls/hr IV .Q10H [facility] Insulin Detemir (Levemir) 10 unit SC HS [facility] Insulin Human Regular (Humulin R Med) 0 units SC ACHS [facility] PRN Reason: Protocol Ketorolac Tromethamine (Toradol) 15 mg IVP Q6H PRN PRN Reason: Pain, moderate (4-7) Metoclopramide HCl (Reglan) 10 mg PO 0600,1130,1630,2200 [facility] Last Admin: 06/28/17 11:31 Dose: 10 mg Ondansetron HCl (Zofran Inj) 4 mg IVP Q4H PRN PRN Reason: Nausea/Vomiting Last Admin: 06/28/17 11:06 Dose: 4 mg Pantoprazole Sodium (Protonix Ec Tab) 40 mg PO 0600 [facility] Last Admin: 06/28/17 05:25 Dose: 40 mg - Labs Labs: 06/28/17 06:30 06/28/17 06:30 - Constitutional Appears: Well - Head Exam Head Exam: ATRAUMATIC, NORMAL INSPECTION, NORMOCEPHALIC - Eye Exam Eye Exam: EOMI, Normal appearance, PERRL Pupil Exam: NORMAL ACCOMODATION, PERRL - ENT Exam ENT Exam: Mucous Membranes Moist, Normal Exam - Neck Exam Neck Exam: Full ROM, Normal Inspection. absent: Lymphadenopathy - Respiratory Exam Respiratory Exam: Clear to Ausculation Bilateral, NORMAL BREATHING PATTERN - Cardiovascular Exam Cardiovascular Exam: REGULAR RHYTHM, +S1, +S2. absent: Murmur - GI/Abdominal Exam GI & Abdominal Exam: Soft, Normal Bowel Sounds. absent: Tenderness - Extremities Exam Extremities Exam: Full ROM, Normal Capillary Refill, Normal Inspection. absent : Joint Swelling, Pedal Edema - Back Exam Back Exam: NORMAL INSPECTION - Neurological Exam Neurological Exam: Alert, Awake, CN II-XII Intact, Normal Gait, Oriented x3 - Psychiatric Exam Psychiatric exam: Normal Affect, Normal Mood - Skin Skin Exam: Dry, Intact, Normal Color, Warm Assessment and Plan - Assessment and Plan (Free Text) Assessment: Assessment and Plan: 21 yo female with pmh including type I DM with insulin dependent and asthma presented with abdominal pain, nausea and vomiting most likely due to diabetic gastroparesis. Intractible nausea and vomiting, likely 2/2 Diabetic Gastroparesis VS Marijuana Hyperemesis Syndrome - CT abdomen and pelvis: No acute findings; Abd XR: No acute findings - test negative; No signs of DKA, patient's sugars are decently controlled - Reglan q8h MARIA A, Zofran q4h PRN - No more morphine - NPO - IVF NS @100 - Check QT interval in light of Zofran, Reglan, and Marijuana Hyperemesis Syndrome - EKG ordered Type 1 diabetes - ISSS - Medium - Levemir 10 U SCHS - Accucheck achs - Hgba1c: 7.7 Prophylaxis - GI- protonix - DVT- lovenox <Gabriele Villanueva B - Last Filed: 06/28/17 16:14> Objective - Vital Signs/Intake and Output Vital Signs (last 24 hours): Temp Pulse Resp BP Pulse Ox 98.5 F 73 16 130/81 99 06/28/17 07:32 06/28/17 07:32 06/28/17 07:32 06/28/17 07:32 06/28/17 07:32 - Labs Labs: 06/28/17 06:30 06/28/17 06:30 Attending/Attestation - Attestation I have personally seen and examined this patient.: Yes I have fully participated in the care of the patient.: Yes I have reviewed all pertinent clinical information, including history, physical exam and plan: Yes Notes (Text): I have seen and examined the patient at bedside. Agree with the note above. Will start clear liquid diet. Counselling provided regarding marijuana use and narcotics abuse. Dr Gabriele Villanueva
--- NOTE | 2017-06-28 15:37 | CP.PCM.DIS ---
<Alfredo Horton - Last Filed: 06/28/17 15:32> Provider - Provider Date of Admission: 06/27/17 22:22 Attending physician: Gabriele Villanueva MD Primary care physician: Momo Pierce MD Consults: No consults Time Spent in preparation of Discharge (in minutes): 45 Hospital Course - Lab Results Lab Results: Most Recent Lab Values WBC 8.3 10^3/ul (4.5-11.0) 06/28/17 06:30 RBC 3.74 10^6/uL (3.5-6.1) 06/28/17 06:30 Hgb 11.7 g/dL (12.0-16.0) L 06/28/17 06:30 Hct 33.4 % (36.0-48.0) L 06/28/17 06:30 MCV 89.3 fl (80.0-105.0) 06/28/17 06:30 MCH 31.3 pg (25.0-35.0) 06/28/17 06:30 MCHC 35.0 g/dl (31.0-37.0) 06/28/17 06:30 RDW 13.2 % (11.5-14.5) 06/28/17 06:30 Plt Count 278 10^3/uL (120.0-450.0) 06/28/17 06:30 MPV 9.5 fl (7.0-11.0) 06/28/17 06:30 Gran % 68.1 % (50.0-68.0) H 06/28/17 06:30 Lymph % (Auto) 24.5 % (22.0-35.0) 06/28/17 06:30 Mills % (Auto) 7.1 % (1.0-6.0) H 06/28/17 06:30 Eos % (Auto) 0.1 % (1.5-5.0) L 06/28/17 06:30 Baso % (Auto) 0.2 % (0.0-3.0) 06/28/17 06:30 Gran # 5.64 (1.4-6.5) 06/28/17 06:30 Lymph # (Auto) 2.0 (1.2-3.4) 06/28/17 06:30 Mills # (Auto) 0.6 (0.1-0.6) 06/28/17 06:30 Eos # (Auto) 0.0 (0.0-0.7) 06/28/17 06:30 Baso # (Auto) 0.02 K/mm3 (0.0-2.0) 06/28/17 06:30 pCO2 42 mm/Hg (35-45) 06/27/17 20:55 pO2 89.0 mm/Hg (80-100) 06/27/17 20:55 HCO3 29.9 mmol/L (21-28) H 06/27/17 20:55 ABG pH 7.46 (7.35-7.45) H 06/27/17 20:55 ABG Total CO2 31.2 mmol.L (22-28) H 06/27/17 20:55 ABG O2 Saturation 98.9 % (95-98) H 06/27/17 20:55 ABG Base Excess 5.4 mmol/L (-2.0-3.0) H 06/27/17 20:55 ABG Potassium 3.1 mmol/L (3.6-5.2) L 06/27/17 20:55 Sodium 138.0 mmol/L (132-148) 06/27/17 20:55 Chloride 104.0 mmol/L (98-107) 06/27/17 20:55 Glucose 230 mg/dl (65-105) H 06/27/17 20:55 Lactate 1.1 mmol/L (0.7-2.1) 06/27/17 20:55 FiO2 21.0 % 06/27/17 20:55 Sodium 141 mmol/L (132-148) 06/28/17 06:30 Potassium 3.3 mmol/L (3.6-5.0) L 06/28/17 06:30 Chloride 103 mmol/L (98-107) 06/28/17 06:30 Carbon Dioxide 28 mmol/L (21-33) 06/28/17 06:30 Anion Gap 13 (10-20) 06/28/17 06:30 BUN 11 mg/dL (7-21) 06/28/17 06:30 Creatinine 0.7 mg/dl (0.7-1.2) 06/28/17 06:30 Est GFR ( Amer) > 60 06/28/17 06:30 Est GFR (Non-Af Amer) > 60 06/28/17 06:30 POC Glucose (mg/dL) 195 mg/dL (65-110) H 06/28/17 11:39 Random Glucose 204 mg/dL (70-110) H 06/28/17 06:30 Hemoglobin A1c 7.7 % (4.2-6.5) H 06/27/17 20:50 Calcium 8.7 mg/dL (8.4-10.5) 06/28/17 06:30 Magnesium 2.0 mg/dL (1.7-2.2) 06/27/17 20:50 Total Bilirubin 0.9 mg/dL (0.2-1.3) 06/28/17 06:30 AST 35 U/L (14-36) 06/28/17 06:30 ALT 46 U/L (7-56) 06/28/17 06:30 Alkaline Phosphatase 44 U/L (38-126) 06/28/17 06:30 Total Protein 6.5 g/dL (5.8-8.3) 06/28/17 06:30 Albumin 3.5 g/dL (3.0-4.8) 06/28/17 06:30 Globulin 3.0 gm/dL 06/28/17 06:30 Albumin/Globulin Ratio 1.2 (1.1-1.8) 06/28/17 06:30 Lipase 107 U/L (23-300) 06/27/17 20:50 Beta HCG, Quant < 2.39 mIU/mL (0-6.15) 06/28/17 08:30 Arterial Blood Potassium 3.1 mmol/L (3.6-5.2) L 06/27/17 20:55 Urine Color Light yellow (YELLOW) 06/27/17 20:38 Urine Appearance Clear (CLEAR) 06/27/17 20:38 Urine pH 7.5 (4.7-8.0) 06/27/17 20:38 Ur Specific [place] 1.020 (1.005-1.035) 06/27/17 20:38 Urine Protein 100 mg/dL (<30 mg/dL) H 06/27/17 20:38 Urine Glucose (UA) Negative mg/dL (NEGATIVE) 06/27/17 20:38 Urine Ketones Negative mg/dL (NEGATIVE) 06/27/17 20:38 Urine Blood Trace-intact (NEGATIVE) H 06/27/17 20:38 Urine Nitrate Negative (NEGATIVE) 06/27/17 20:38 Urine Bilirubin Negative (NEGATIVE) 06/27/17 20:38 Urine Urobilinogen 4.0 E.U./dL (<1 E.U./dL) H 06/27/17 20:38 Ur Leukocyte Esterase Negative Genny/uL (NEGATIVE) 06/27/17 20:38 Urine RBC 5 - 10 /hpf (0-2) 06/27/17 20:38 Urine WBC 2 - 5 /hpf (0-6) 06/27/17 20:38 Ur Epithelial Cells Many /hpf (0-5) 06/27/17 20:38 Urine Bacteria Mod (NEG) 06/27/17 20:38 Urine Opiates Screen Negative (NEGATIVE) 06/27/17 20:38 Urine Methadone Screen Negative (NEGATIVE) 06/27/17 20:38 Ur Barbiturates Screen Negative (NEGATIVE) 06/27/17 20:38 Ur Phencyclidine Scrn Negative (NEGATIVE) 06/27/17 20:38 Ur Amphetamines Screen Negative (NEGATIVE) 06/27/17 20:38 U Benzodiazepines Scrn Negative (NEGATIVE) 06/27/17 20:38 U Oth Cocaine Metabols Negative (NEGATIVE) 06/27/17 20:38 U Cannabinoids Screen Positive (NEGATIVE) H 06/27/17 20:38 - Hospital Course Hospital Course: HPI on day of admission: 21 yo female with pmh including type I DM with insulin dependent and asthma presented with abdominal pain, nausea and vomiting for 3 days. Patient stated that she has epigastric pain, on and off for the past 3 days. She states that she has had multiple episodes of vomiting, non bloody and has not been able to eat anything. She states that for the past few days her sugars have been uncontrolled. She reports previous episode with similar symptoms but does not recall when its occurred or what was the cause. She states that so took zofran for the n/v however it did not help. She denies urinary symptoms, rash, night sweat, dizziness, change in vision. Patient was in the ED yesterday and had CT abdomen and pelvis yesterday with no obstructive calculus noted, no hematuria, no urinary symptoms, no other medical or psychological complaints. Throughout her hospital course, Ms. Morrissey stated that she did not have any more bouts of emesis and that her abdominal pain resolved. Patient's XR abdomen showed no acute disease and she was given Reglan and Zofran for her nausea. Her EKG was checked for prolongation of QT interval given her Reglan, Zofran, and Differential diagnosis of Marijuana Hyperemesis Syndrome. Patient stated that all of her symptoms had resolved on Day 2 of admission. She was stable and did not have any complaints, so wanted to be discharged, but we wanted to keep her for one more day of observation. Patient did not agree with this and decided to leave against medical advice. Discharge Exam - Head Exam Head Exam: ATRAUMATIC, NORMAL INSPECTION, NORMOCEPHALIC - Eye Exam Eye Exam: EOMI, Normal appearance, PERRL Pupil Exam: NORMAL ACCOMODATION, PERRL - Respiratory Exam Respiratory Exam: Clear to PA & Lateral, NORMAL BREATHING PATTERN, UNREMARKABLE - Cardiovascular Exam Cardiovascular Exam: REGULAR RHYTHM, RRR, +S1. absent: Diastolic murmur, Systolic Murmur - GI/Abdominal Exam GI & Abdominal Exam: Normal Bowel Sounds, Unremarkable - Neurological Exam Neurological exam: Alert, CN II-XII Intact, Normal Gait, Oriented x3, Reflexes Normal - Psychiatric Exam Psychiatric exam: Normal Affect, Normal Mood - Skin Skin Exam: Dry, Intact, Normal Color, Warm Discharge Plan - Follow Up Plan Condition: STABLE Disposition: AGAINST MEDICAL ADVICE Referrals: Momo Pierce MD [Primary Care Provider] - <Gabriele Villanueva - Last Filed: 06/28/17 16:14> Provider - Provider Date of Admission: 06/27/17 22:22 Attending physician: Gabriele Villanueva MD Primary care physician: Momo Pierce MD Hospital Course - Lab Results Lab Results: Most Recent Lab Values WBC 8.3 10^3/ul (4.5-11.0) 06/28/17 06:30 RBC 3.74 10^6/uL (3.5-6.1) 06/28/17 06:30 Hgb 11.7 g/dL (12.0-16.0) L 06/28/17 06:30 Hct 33.4 % (36.0-48.0) L 06/28/17 06:30 MCV 89.3 fl (80.0-105.0) 06/28/17 06:30 MCH 31.3 pg (25.0-35.0) 06/28/17 06:30 MCHC 35.0 g/dl (31.0-37.0) 06/28/17 06:30 RDW 13.2 % (11.5-14.5) 06/28/17 06:30 Plt Count 278 10^3/uL (120.0-450.0) 06/28/17 06:30 MPV 9.5 fl (7.0-11.0) 06/28/17 06:30 Gran % 68.1 % (50.0-68.0) H 06/28/17 06:30 Lymph % (Auto) 24.5 % (22.0-35.0) 06/28/17 06:30 Mills % (Auto) 7.1 % (1.0-6.0) H 06/28/17 06:30 Eos % (Auto) 0.1 % (1.5-5.0) L 06/28/17 06:30 Baso % (Auto) 0.2 % (0.0-3.0) 06/28/17 06:30 Gran # 5.64 (1.4-6.5) 06/28/17 06:30 Lymph # (Auto) 2.0 (1.2-3.4) 06/28/17 06:30 Mills # (Auto) 0.6 (0.1-0.6) 06/28/17 06:30 Eos # (Auto) 0.0 (0.0-0.7) 06/28/17 06:30 Baso # (Auto) 0.02 K/mm3 (0.0-2.0) 06/28/17 06:30 pCO2 42 mm/Hg (35-45) 06/27/17 20:55 pO2 89.0 mm/Hg (80-100) 06/27/17 20:55 HCO3 29.9 mmol/L (21-28) H 06/27/17 20:55 ABG pH 7.46 (7.35-7.45) H 06/27/17 20:55 ABG Total CO2 31.2 mmol.L (22-28) H 06/27/17 20:55 ABG O2 Saturation 98.9 % (95-98) H 06/27/17 20:55 ABG Base Excess 5.4 mmol/L (-2.0-3.0) H 06/27/17 20:55 ABG Potassium 3.1 mmol/L (3.6-5.2) L 06/27/17 20:55 Sodium 138.0 mmol/L (132-148) 06/27/17 20:55 Chloride 104.0 mmol/L (98-107) 06/27/17 20:55 Glucose 230 mg/dl (65-105) H 06/27/17 20:55 Lactate 1.1 mmol/L (0.7-2.1) 06/27/17 20:55 FiO2 21.0 % 06/27/17 20:55 Sodium 141 mmol/L (132-148) 06/28/17 06:30 Potassium 3.3 mmol/L (3.6-5.0) L 06/28/17 06:30 Chloride 103 mmol/L (98-107) 06/28/17 06:30 Carbon Dioxide 28 mmol/L (21-33) 06/28/17 06:30 Anion Gap 13 (10-20) 06/28/17 06:30 BUN 11 mg/dL (7-21) 06/28/17 06:30 Creatinine 0.7 mg/dl (0.7-1.2) 06/28/17 06:30 Est GFR ( Amer) > 60 06/28/17 06:30 Est GFR (Non-Af Amer) > 60 06/28/17 06:30 POC Glucose (mg/dL) 195 mg/dL (65-110) H 06/28/17 11:39 Random Glucose 204 mg/dL (70-110) H 06/28/17 06:30 Hemoglobin A1c 7.7 % (4.2-6.5) H 06/27/17 20:50 Calcium 8.7 mg/dL (8.4-10.5) 06/28/17 06:30 Magnesium 2.0 mg/dL (1.7-2.2) 06/27/17 20:50 Total Bilirubin 0.9 mg/dL (0.2-1.3) 06/28/17 06:30 AST 35 U/L (14-36) 06/28/17 06:30 ALT 46 U/L (7-56) 06/28/17 06:30 Alkaline Phosphatase 44 U/L (38-126) 06/28/17 06:30 Total Protein 6.5 g/dL (5.8-8.3) 06/28/17 06:30 Albumin 3.5 g/dL (3.0-4.8) 06/28/17 06:30 Globulin 3.0 gm/dL 06/28/17 06:30 Albumin/Globulin Ratio 1.2 (1.1-1.8) 06/28/17 06:30 Lipase 107 U/L (23-300) 06/27/17 20:50 Beta HCG, Quant < 2.39 mIU/mL (0-6.15) 06/28/17 08:30 Arterial Blood Potassium 3.1 mmol/L (3.6-5.2) L 06/27/17 20:55 Urine Color Light yellow (YELLOW) 06/27/17 20:38 Urine Appearance Clear (CLEAR) 06/27/17 20:38 Urine pH 7.5 (4.7-8.0) 06/27/17 20:38 Ur Specific [place] 1.020 (1.005-1.035) 06/27/17 20:38 Urine Protein 100 mg/dL (<30 mg/dL) H 06/27/17 20:38 Urine Glucose (UA) Negative mg/dL (NEGATIVE) 06/27/17 20:38 Urine Ketones Negative mg/dL (NEGATIVE) 06/27/17 20:38 Urine Blood Trace-intact (NEGATIVE) H 06/27/17 20:38 Urine Nitrate Negative (NEGATIVE) 06/27/17 20:38 Urine Bilirubin Negative (NEGATIVE) 06/27/17 20:38 Urine Urobilinogen 4.0 E.U./dL (<1 E.U./dL) H 06/27/17 20:38 Ur Leukocyte Esterase Negative Genny/uL (NEGATIVE) 06/27/17 20:38 Urine RBC 5 - 10 /hpf (0-2) 06/27/17 20:38 Urine WBC 2 - 5 /hpf (0-6) 06/27/17 20:38 Ur Epithelial Cells Many /hpf (0-5) 06/27/17 20:38 Urine Bacteria Mod (NEG) 06/27/17 20:38 Urine Opiates Screen Negative (NEGATIVE) 06/27/17 20:38 Urine Methadone Screen Negative (NEGATIVE) 06/27/17 20:38 Ur Barbiturates Screen Negative (NEGATIVE) 06/27/17 20:38 Ur Phencyclidine Scrn Negative (NEGATIVE) 06/27/17 20:38 Ur Amphetamines Screen Negative (NEGATIVE) 06/27/17 20:38 U Benzodiazepines Scrn Negative (NEGATIVE) 06/27/17 20:38 U Oth Cocaine Metabols Negative (NEGATIVE) 06/27/17 20:38 U Cannabinoids Screen Positive (NEGATIVE) H 06/27/17 20:38 Attending/Attestation - Attestation I have personally seen and examined this patient.: Yes I have fully participated in the care of the patient.: Yes I have reviewed all pertinent clinical information, including history, physical exam and plan: Yes Notes (Text): Patient left AMA.
[2017-06-28] MEDS ORDERED: Insulin Detemir 100 units/ml Vial (Levemir) SC SCH (22:00)
--- NOTE | 2017-06-28 22:00 | CARD ---
APPROVED REPORT EKG Measurement Heart [id number] <Conclusion> Normal sinus rhythm Cannot rule out Anterior infarct, age undetermined Abnormal ECG
== END 2017-06-28 14:48 | disposition left against medical advice (07) | DRG 18 ==
LOC: ED 19:59 → ERH 22:22 → 5RSO 23:32 → OBSVTOIN 06-28 14:01
PROVIDERS: ADMIT Internal Medicine; ATTEND Hospitalist
DX: E10.43 Type 1 diabetes mellitus with diabetic autonomic (poly)neuropathy (principal); K31.84 Gastroparesis; Z79.4 Long term (current) use of insulin; F11.10 Opioid abuse, uncomplicated; J45.909 Unspecified asthma, uncomplicated; F12.90 Cannabis use, unspecified, uncomplicated; Z90.49 Acquired absence of other specified parts of digestive tract